=== PATIENT | male | born 1980 | race Caucasian/White ===

== ENCOUNTER 2019-09-23 13:08 | Emergency (ER) | payer SELFPAY ==
[2019-09-23 13:32] VITALS: BP 156/82; PULSE 91; RESP 20; TEMP 36.9; O2SAT 98; BMI 32.5
--- NOTE | 2019-09-23 13:43 | HMH.EDUTC ---
[facility] [place] Impression: Sciatic leg pain Low back pain Qualifiers: Chronicity: acute Back pain laterality: right Sciatica presence: with sciatica Sciatica laterality: sciatica of right side Qualified Code(s): M54.41 - Lumbago with sciatica, right side Disposition: Home, Self-Care Condition on Discharge: Good Instructions: Low Back Pain, DI for Low Back Pain Additional Instructions: Go home and rest. It would be best if you rested tomorrow too. No heavy lifting. No twisting. Take the oral medications as directed. The muscle relaxer (robaxin) will make you drowsy, so don't drive or operate heavy machinery after taking it. Don't start the oral steroids (medrol dose pack) until tomorrow, since you had the shots in here today. Follow up with your regular doctor. GO TO THE ER FOR ANY WORSENING SYMPTOMS OR CONCERN, ESPECIALLY BOWEL OR BLADDER ISSUES, SADDLE AREA NUMBNESS, FEVER, ETC Prescriptions: methylPREDNISolone [Medrol] 4 mg PO DIRECTED 6 Days #21 tab.ds.pk Transmission Status: Received by [facility] #[id number] methocarbamoL [Robaxin 750mg Tab] 750 mg PO TIDP PRN #30 tab PRN Reason: Muscle Spasm Transmission Status: Received by [facility] #[id number] Referrals: Provider,Referral, [Primary Care Provider] - Forms: Work/School Release Time of Disposition: 14:04 Medical Decision Making - Medical Records Medical records reviewed: No: I reviewed the patient's medical records. - Amadou Inquiry Pt receiving controlled substance: No Vital Signs: 09/23/19 13:32 09/23/19 14:06 Temperature 98.5 F 98.5 F Temperature Source Oral Pulse Rate 91 H Pulse Rate [Right Brachial] 91 H Respiratory Rate 20 20 Blood Pressure 156/82 H Blood Pressure [Right Arm] 156/82 H Blood Pressure Mean [Right Arm] 106 Blood Pressure Source [Right Arm] Automatic Cuff Blood Pressure Position [Right Arm] Sitting 02 Sat by Pulse Oximetry 98 Oxygen Delivery Method Room Air Orders (Tests/Meds): ED MEDICATIONS Discontinued Medications Generic Name Dose Route Start Last Admin Trade Name Freq PRN Reason Stop Dose Admin Ketorolac Tromethamine 60 mg 09/23/19 13:43 09/23/19 14:00 Toradol 60mg/2ml Vial IM 09/23/19 13:44 60 mg ONCE ONE Administration Methylprednisolone Sodium Succinate 125 mg 09/23/19 13:43 09/23/19 14:00 Solu-Medrol 125mg/2ml Vial IM 09/23/19 13:44 125 mg ONCE ONE Administration [facility] [place] - General Stated complaint: back pain Time Seen by Provider: 09/23/19 13:43 Mode of Arrival: Ambulatory Source of Information: Patient Limitations: No Limitations Description of Symptoms (Recalled from Triage Doc. by RN): PATIENT C/O LEFT LOWER BACK PAIN X 2 DAYS. STATES HE GOT UP FROM A LAWN CHAIR AND STRETCHED AND FELT A POP IN HIS RIGHT LOWER BACK THAT CAUSE PAIN TO SHOOT TO HIS LEFT LOWER BACK. C/O PAIN TO LEFT LOWER BACK AND TENDERNESS TO RIGHT LOWER BACK HEENT Symptoms (Recalled from RN notes): No Resp Symptoms (Recalled from RN notes): No Skin Symptoms (Recalled from RN notes): No MS Symptoms (Recalled from RN notes): Yes Functional Status (Recalled from RN notes): WNL - History of Present Illness Provider Complaint: He c/o 2 days of low back pain that began after he had worked hard all day putting up a fence, then went home and sit down. When he stood back up and stretched, he began having low back pain that is worse on the right and radiates down the right leg. He denies any urinary or bowel issues. He denies any saddle area numbness. - Related Data Previous Rx's Medication Instructions Recorded methocarbamoL [Robaxin 750mg Tab] 750 mg PO TIDP PRN #30 tab 09/23/19 methylPREDNISolone [Medrol] 4 mg PO DIRECTED 6 Days #21 09/23/19 tab.ds.pk Allergies Allergy/AdvReac Type Severity Reaction Status Date / Time No Known Allergies Allergy Verified 07/02/18 05:09 - Worker's Comp Is this a Worker's Comp case?: No
[2019-09-23 14:06] VITALS: BP 156/82; PULSE 91; RESP 20; TEMP 36.9; O2SAT 98
== END 2019-09-23 14:12 | disposition home or self-care (01) ==
PROVIDERS: Emergency Provider Nurse Practitioner Family
DX: M54.42 Lumbago with sciatica, left side (principal); F17.210 Nicotine dependence, cigarettes, uncomplicated; X50.3XXA Overexertion from repetitive movements, initial encounter
CPT/HCPCS: 96372; 99201

== ENCOUNTER 2020-07-26 18:03 | Emergency (ER) | payer OTHER, SELFPAY ==
--- NOTE | 2020-07-26 18:18 | XR_ITS ---
PROCEDURE: XR FOOT RT MIN 3V CLINICAL INDICATION: INJURY Pain swelling and bruising of the great toe following injury COMPARISON: No exams were available for comparison FINDINGS: No fracture or dislocation. No lytic or blastic change. There is normal mineralization. The joint spaces are well-preserved. No significant degenerative/arthritic changes. No erosive changes evident. Other findings:None. IMPRESSION: No acute findings. Dictated by: Saji Franco MD 07/27/2020 05:13 Saji Franco MD in [place] 07/27/2020 05:13
[2020-07-26 18:19] VITALS: BP 115/93; PULSE 105; RESP 19; TEMP 36.3; O2SAT 98; BMI 33.4
--- NOTE | 2020-07-26 18:24 | HMH.EDUTC ---
[facility] [place] Clinical Impression: Sprain of left foot Qualifiers: Encounter type: initial encounter Qualified Code(s): S93.602A - Unspecified sprain of left foot, initial encounter Disposition: Home, Self-Care Condition on Discharge: Good Instructions: DI for Foot Sprain Additional Instructions: Rest the extremity, apply ice for 15 minutes as tolerated three or four times per day, Elevate the extremity as tolerated while you are resting. Take ibuprofen for pain. I sent in a prescription to your pharmacy. Follow up with Dr. Camarena (podiatry). Sometimes there can be fractures that don't show up well on the first set of x-rays. So, you should follow up if you continue to have symptoms. I put in a referral but you need to call her office and schedule an appointment. Follow up with your regular doctor. GO TO THE ER FOR ANY WORSENING SYMPTOMS Prescriptions: Ibuprofen [Ibuprofen 600mg Tablet] 600 mg PO Q6HP PRN #30 tab PRN Reason: Mild Pain Transmission Status: Received by [facility] #[id number] Referrals: PCP,No [Primary Care Provider] - Mary Kate Camarena DPM [Staff Physician] - Time of Disposition: 19:11 Medical Decision Making - Medical Records Medical records reviewed: No: I reviewed the patient's medical records. - Amadou Inquiry Pt receiving controlled substance: No Vital Signs: 07/26/20 18:19 07/26/20 19:20 Temperature 97.4 F L 98 F Temperature Source Tympanic Pulse Rate 82 Pulse Rate [Right] 105 H Respiratory Rate 19 16 Blood Pressure 121/87 Blood Pressure [Right Arm] 115/93 H Blood Pressure Mean [Right Arm] 100 02 Sat by Pulse Oximetry 98 [facility] [place] - General Stated complaint: AO04/05@1700 R foot injury Time Seen by Provider: 07/26/20 18:24 Mode of Arrival: Ambulatory Source of Information: Patient Limitations: No Limitations Description of Symptoms (Recalled from Triage Doc. by RN): pt reports having pain in his R foot, specifically his toes. he tripped on stairs and thinks he may have broke his big toe. HEENT Symptoms (Recalled from RN notes): No Resp Symptoms (Recalled from RN notes): No Skin Symptoms (Recalled from RN notes): No MS Symptoms (Recalled from RN notes): Yes (R foot metatarsal pain) Functional Status (Recalled from RN notes): na - History of Present Illness Provider Complaint: He states that he was stepping down off the back of a moving truck when all his weight got put on his right great toe. He states that he heard a pop, then he began to have foot and big toe pain and swelling. - Related Data Previous Rx's Medication Instructions Recorded methocarbamoL [Robaxin 750mg Tab] 750 mg PO TIDP PRN #30 tab 09/23/19 methylPREDNISolone [Medrol] 4 mg PO DIRECTED 6 Days #21 09/23/19 tab.ds.pk Ibuprofen [Ibuprofen 600mg 600 mg PO Q6HP PRN #30 tab 07/26/20 Tablet] Allergies Allergy/AdvReac Type Severity Reaction Status Date / Time No Known Allergies Allergy Verified 07/26/20 18:22 - Worker's Comp Is this a Worker's Comp case?: No [facility] History - Hepatitis A Screen Drug use history?: No High risk sexual behaviors?: No History of sexually transmitted infection?: No Currently employed?: No Childcare worker?: No Do you have indoor plumbing?: Yes Do you have electricity?: Yes Attestation statement:: This patient has been screened for Hepatitis A risk factors. I have reviewed the patient's past medical history: Yes Medical History: Denies:: Cancer, Diabetes Mellitus Type 1, Diabetes Mellitus Type 2, MRSA Other Medical History: Reports: Other (Hep B, chronic intermittent pain) Other Surgeries: Yes: No Previous Surgery Amputation: No - Social History Smoking Status: Current every day smoker Tobacco Type: cigarettes # Packs/Day (cigarettes): 1 Alcohol Intake: never Occupational Status: other ROS Obtained: Yes All systems reviewed & no additional complaints - Constitutional Constitutional: Denies chills, Denies fev
[2020-07-26 19:20] VITALS: BP 121/87; PULSE 82; RESP 16; TEMP 36.6
== END 2020-07-26 19:20 | disposition home or self-care (01) ==
PROVIDERS: Emergency Provider Nurse Practitioner Family
DX: S93.602A Unspecified sprain of left foot, initial encounter (principal); W10.9XXA Fall (on) (from) unspecified stairs and steps, initial encounter; Y92.89 Other specified places as the place of occurrence of the external cause; F17.210 Nicotine dependence, cigarettes, uncomplicated
CPT/HCPCS: 29515; 73630; 99202; G0463

== ENCOUNTER 2020-09-19 08:44 | Emergency (ER) | payer OTHER, SELFPAY ==
--- NOTE | 2020-09-19 08:55 | XR_ITS ---
PROCEDURE INFORMATION: Exam: XR Lumbosacral Spine Exam date and time: 09/19/2020 8:55 AM Age: 39 years old Clinical indication: Low back pain TECHNIQUE: Imaging protocol: XR of the lumbosacral spine. Views: 2 or 3 views. COMPARISON: CR [id number] XR lumbar spine min 4V 11/01/2017 12:39 PM FINDINGS: Bones/joints: There is no evidence of acute fracture.There is no evidence of malalignment or dislocation. Intervertebral disc spaces are maintained. Schmorl's nodes noted at multiple levels L1 through L4 Soft tissues: Unremarkable. IMPRESSION: 1. There is no evidence of acute fracture.There is no evidence of malalignment or dislocation. 2. Intervertebral disc spaces are maintained.
[2020-09-19 08:56] VITALS: BP 171/96; PULSE 90; RESP 18; TEMP 36.7; O2SAT 100; BMI 32.5
--- NOTE | 2020-09-19 08:56 | HMH.EDGENADL ---
ED Disposition Clinical Impression: Back pain of lumbar region with sciatica Disposition: Home, Self-Care Condition on Discharge: Fair Instructions: DI for Sciatica, DI for Back Pain With Sciatica Additional Instructions: You have been evaluated for low back pain, sciatica. Please take anti-inflammatories and prednisone. Use stretching and strengthening exercises. Return to the emergency department for any new or worsening symptoms. Prescriptions: Ibuprofen [Ibuprofen 600mg Tablet] 600 mg PO Q8 #18 tab Transmission Status: Received by [facility] #[id number] predniSONE [Prednisone 20mg Tab] 20 mg PO BID #10 tab Transmission Status: Received by [facility] #[id number] Referrals: Provider,Referral, [Primary Care Provider] - Time of Disposition: 08:57 - Critical Care Critical Care Time: No Attestation: On 09/19/20, the high probability of a clinically significant, sudden or life threatening deterioration of the following system(s) required my full and direct attention, intervention and personal management. The time I documented below is in addition to time spent performing reported procedures but includes the following listed in this critical care notation. Medical Decision Making - Medical Records Medical records reviewed: Yes: I reviewed the patient's medical records. - Amadou Inquiry Pt receiving controlled substance: No Vital Signs: 09/19/20 08:56 Temperature 98.0 F Temperature Source Oral Pulse Rate [Left Radial] 90 Respiratory Rate 18 Blood Pressure [Right Arm] 171/96 H Blood Pressure Mean [Right Arm] 121 Blood Pressure Source [Right Arm] Automatic Cuff Blood Pressure Position [Right Arm] Sitting 02 Sat by Pulse Oximetry 100 Oxygen Delivery Method Room Air Orders (Tests/Meds): ED MEDICATIONS Discontinued Medications Generic Name Dose Route Start Last Admin Trade Name Freq PRN Reason Stop Dose Admin Ketorolac Tromethamine 15 mg 09/19/20 08:56 09/19/20 09:00 Ketorolac 30mg/Ml Vial IM 09/19/20 08:57 15 mg ONCE ONE Administration Lidocaine 1 each 09/19/20 08:56 09/19/20 09:01 Lidocaine 5% Transdermal Patch TP 09/19/20 08:57 1 each ONCE ONE Administration - Radiology Data #1 Image(s): L-Spine Image Reviewed: Yes I reviewed the patient's radiology results, Yes I have reviewed radiologist's interpretation Preliminary Findings: Normal/NAD XR L IMPRESSION: 1. There is no evidence of acute fracture.There is no evidence of malalignment or dislocation. 2. Intervertebral disc spaces are maintained. Medical Decision Narrative: In summary this is a 39-year-old male presenting to the emergency department with right-sided back pain, buttock pain, radiating into his thigh. Clinically stable on arrival. Vital signs within normal limits. Most likely diagnosis is sciatica. Patient has not had recent back imaging. Cannot exclude compression fracture or other structural abnormality. Will obtain lumbar x-rays. Patient given 15 mg IM Toradol. Prescriptions for anti-inflammatories, 600 mg ibuprofen, and prednisone 5-day pack. Recommended close follow-up with his PCP. Given instructions on back exercises. Avoid immobility. Stable for discharge. General Adult HPI - General Stated complaint: rt hip pain Time Seen by Provider: 09/19/20 08:58 Mode of Arrival: Ambulatory Source of Information: Patient Limitations: No Limitations - History of Present Illness HPI narrative: 39-year-old male presenting to the emergency department with right buttock and hip pain. Symptoms started 2 days ago. He woke up and when he started to walk had a pain in his right buttocks that was described as sharp, stabbing. Radiated into the back of his hip and lateral thigh. Pain is been constant for the last 2 days. Pain worse with walking. Improved by rest. Has a history of back issues. Has never seen a surgeon or orthopedist. Had sciatica on the left a
[2020-09-19 08:59] VITALS: BP 139/91; PULSE 78; RESP 16; O2SAT 98
--- NOTE | 2020-09-19 09:27 | PC.NURSE ---
pt going to rad.
[2020-09-19 10:30] VITALS: BP 139/61; PULSE 78; RESP 16; TEMP 36.7; O2SAT 98
== END 2020-09-19 10:32 | disposition home or self-care (01) ==
PROVIDERS: Emergency Provider Emergency Medicine
DX: M54.41 Lumbago with sciatica, right side (principal); F17.210 Nicotine dependence, cigarettes, uncomplicated
CPT/HCPCS: 72100; 96372; 99282

== ENCOUNTER 2022-04-21 08:16 | Emergency (ER) | payer BC, SELFPAY ==
[2022-04-21] VITALS (9 sets, daily range): BP systolic 95–123; BP diastolic 59–80; PULSE 71–111; RESP 17–20; TEMP 36.8–37.7; O2SAT 91–99; BMI 32.5; BMI 26.6
[2022-04-21 08:50] LABS: Apearance,Urine Turbid (Clear); Color,Urine Dark Yellow (Yellow)
[2022-04-21 08:51] LABS: UTC Influenza A Antigen Negative (Negative); UTC Influenza B Antigen Negative (Negative)
[2022-04-21 08:51] LABS: Glucose,Urine (UA) Negative (Negative); Protein,Urine 3+ (Negative); Specific Gravity, Urine >= 1.030 (1.005-1.030)
[2022-04-21 08:52] LABS: Bilirubin,Urine 1+ (Negative); Blood, Urine Trace (Negative); Ketones,Urine SMALL (Negative); UTC Leukocyte Esterase,Urine Negative (Negative); UTC Nitrate,Urine Negative (Negative); Urobilinogen,Urine 1 EU/dl (0.2)
--- NOTE | 2022-04-21 09:04 | EXP.UTC ---
Discharge Plan Disposition Patient Disposition: Home, Self-Care Condition: Fair Prescriptions Prescriptions: No Action omeprazole 40 mg capsule,delayed release(DR/EC) 40 mg PO QDAY Qty: 30 1RF Rx Instructions: swallow whole; do not crush, chew, dissolve, or cut/break Referrals Follow up/Referrals: Julien Ortega MD [Staff Physician] - See instructions (Needs elective cholecystectomy) Provider,Referral, [Primary Care Provider] - See instructions Activity Restrictions/Add. Instructions Additional Instructions/Restrictions: Follow-up with your primary care provider regarding this visit to the emergency department. If you have inability to tolerate food or drink by mouth, new or worsening symptoms, or any other concerning signs or symptoms, return to your primary care provider or the ED for further evaluation. Clinical Impressions Clinical Impression: Abdominal pain Discharge ED Provider: Castro Zapien [facility] [place] General Chief complaint: Upper Respiratory Infection Stated complaint: Stomach Pain Mode of Arrival: Ambulatory Source of Information: Patient Limitations: No Limitations Time Seen by Provider: 04/21/22 09:04 Description of Symptoms (Recalled from Triage Doc. by RN): pt comes in with c/o body aches, trouble peeing, back pain, headache. symptoms began lastnight. much worse this am. HEENT Symptoms (Recalled from RN notes): Yes Resp Symptoms (Recalled from RN notes): Yes Skin Symptoms (Recalled from RN notes): No MS Symptoms (Recalled from RN notes): Yes Functional Status (Recalled from RN notes): n/a History of Present Illness Provider Complaint: Patient states that yesterday he felt a little achy but he does that sometimes States that he woke up this morning feeling like the top of his head was blowing off having pain in his abdomen that is shooting into his back and feeling like his back was done States that when he pushes in on his stomach pain in back is worse. States that he also tried to urinate this morning and was unable to urinate States that he feels like his insides is infected States this is the worst headache he has ever had he just dont feel right States that has a little pain when he takes deep breath Related Data Previous Rx's Medication Instructions Recorded omeprazole 40 mg capsule,delayed 40 mg PO QDAY #30 caps 01/27/22 release Allergies Allergy/AdvReac Type Severity Reaction Status Date / Time No Known Allergies Allergy Verified 04/21/22 08:45 Worker's Comp Is this a Worker's Comp case?: No [facility] Disclaimer: The information contained in this section may have been updated after the patient was seen, as this information can be updated by other users. Medical History (Updated 04/21/22 @ 13:37 by Castro Zapien MD) Abnormal electrocardiogram [ECG] [EKG] Anxiety Degenerative disc disease Hepatitis B Family History Other Coronary artery disease Social History Smoking Status: Current every day smoker tobacco type: cigarettes packs per day: 1 alcohol intake: never current occupational status: other Travel in the last 8 weeks: None ROS Obtained: Yes All systems reviewed & no additional complaints except as documented and Yes Systems reviewed as appropriate & no additional complaints except as documented Constitutional Constitutional: Reports system reviewed and no additional complaints, except as documented, Reports as per HPI and Reports headache(s) Eyes Eyes: Reports system reviewed and no additional complaints, except as documented and Reports as per HPI ENT Ears, Nose, Mouth, and Throat: Reports system reviewed and no additional complaints, except as documented, Reports as per HPI and Reports headache(s) Cardiovascular Cardiovascular: Reports system reviewed and no additional complaints, except as documented and Reports as per HPI Respi
[2022-04-21 09:21] LABS: Coronavirus 19, PCR Not Detected (NotDetected); Influenza A, PCR Not Detected (NotDetected); Influenza B, PCR Not Detected (NotDetected)
--- NOTE | 2022-04-21 09:24 | XR_ITS ---
FINAL REPORT CLINICAL HISTORY: COUGH COMPARISON: 07/02/2018 FINDINGS: TWO-VIEW CHEST The heart size is normal. The mediastinum is normal. There are mild right base opacities, favor atelectasis over pneumonia. There is no pneumothorax. IMPRESSION: Right base atelectasis over pneumonia. Reviewed, Interpreted and Dictated by Julien Blanco III, MD Transcribed by Sloane Pineda Authenticated and . [facility]
[2022-04-21 09:30] LABS: Basophils # 0.2 K/mm3 (0-0.2); Basophils % 2.2 % (0.1-2.0); Eosinophils % 0.5 % (0.1-12.0); Hematocrit 50.6 % (42.0-52.0); Hemoglobin 16.5 g/dL (14.1-18.0); Lymphocytes # 1.1 K/mm3 (0.7-4.5); Lymphocytes % 11.5 % (10-50); Mean Corpuscular HGB Conc 32.6 g/dL (31.8-35.4); Mean Corpuscular Hemoglobin 30.6 pg (27.0-31.2); Mean Corpuscular Volume 93.7 fl (80-94); Mean Platelet Volume 7.2 fl (7.4-10.4); Monocytes # 1.2 K/mm3 (0.1-1.0); Monocytes % 12.2 % (1.7-9.3); Neutrophils # 6.9 K/mm3 (1.8-7.8); Neutrophils % 73.7 % (37.0-80.0); Platelet Count 355 K/mm3 (142-424); Red Cell Distribution Width 13.2 % (11.5-17.5); White Blood Count 9.4 K/mm3 (4.8-10.8)
--- NOTE | 2022-04-21 09:30 | PC.NURSE ---
DR. MILLAN AT BEDSIDE
[2022-04-21 09:31] LABS: Chloride 103 mmol/L (98-107)
[2022-04-21 09:32] LABS: Potassium 4.1 mmoL/L (3.5-5.1); Sodium 140 mmol/L (136-145)
[2022-04-21 09:34] LABS: Alanine Aminotransferase 41 U/L (12-78); Alkaline Phosphatase 71 U/L (38-126); Aspartate Amino Transferase 51 U/L (17-59); Bilirubin,Total 0.6 mg/dl (0.2-1.3); Blood Urea Nitrogen 9 mg/dl (9-20); Creatinine Clearance Estimated 104 mL/min (50-200); Estimated Glomerular Filt Rate 75 ml/min (>60); GFR (African American) 90 ML/MIN (>60)
[2022-04-21 09:35] LABS: Albumin Level 4.7 g/dl (3.5-5.0); Albumin/Globulin Ratio 1.7 (1.1-1.8); Anion Gap 14.1 mEq/L (5-15); Calcium 9.6 mg/dl (8.4-10.2); Carbon Dioxide 27 mmol/L (22.0-30.0); Globulin 2.7 g/dL (1.3-3.2); Glucose 104 mg/dl (74-100); Lactic Acid 0.6 mmol/L (0.7-2.1); Total Protein,Serum 7.4 g/dl (6.3-8.2)
--- NOTE | 2022-04-21 09:45 | HMH.EDGENADL ---
Discharge Plan Disposition Patient Disposition: Home, Self-Care Condition: Fair Prescriptions Prescriptions: No Action omeprazole 40 mg capsule,delayed release(DR/EC) 40 mg PO QDAY Qty: 30 1RF Rx Instructions: swallow whole; do not crush, chew, dissolve, or cut/break Referrals Follow up/Referrals: Provider,Referral, [Primary Care Provider] - See instructions Activity Restrictions/Add. Instructions Additional Instructions/Restrictions: Follow-up with your primary care provider regarding this visit to the emergency department. If you have inability to tolerate food or drink by mouth, new or worsening symptoms, or any other concerning signs or symptoms, return to your primary care provider or the ED for further evaluation. Clinical Impressions Clinical Impression: Abdominal pain Discharge ED Provider: Castro Zapien General Adult HPI General Chief complaint: Upper Respiratory Infection Stated complaint: Stomach Pain Time Seen by Provider: 04/21/22 09:04 Mode of Arrival: Ambulatory Source of Information: Patient Limitations: No Limitations Description of Symptoms (Recalled from ER Triage Doc. by RN): pt comes in with c/o body aches, trouble peeing, back pain, headache. symptoms began lastnight. much worse this am. History of Present Illness HPI narrative: This is a 41-year-old male with history of hep B presenting with abdominal pain and nausea. Patient states that 24 hours prior to arrival, he began having abdominal pain that has been crescendo in nature. Right upper quadrant/epigastric and radiates through to his back. 10 out of 10 at its worst, currently 2 out of 10. Denies chest pain, shortness of breath, diaphoresis, weakness, neurologic deficits, vomiting, fevers, chills, yellowing of the skin or eyes, diarrhea, constipation, trauma, or any other concerning history. Patient has not tried anything to alleviate the symptoms and not noticed anything that makes him worse in particular. Related Data Previous Rx's Medication Instructions Recorded omeprazole 40 mg capsule,delayed 40 mg PO QDAY #30 caps 01/27/22 release Allergies Allergy/AdvReac Type Severity Reaction Status Date / Time No Known Allergies Allergy Verified 04/21/22 08:45 [facility] Disclaimer: The information contained in this section may have been updated after the patient was seen, as this information can be updated by other users. Medical History (Updated 04/21/22 @ 13:37 by Castro Zapien MD) Abnormal electrocardiogram [ECG] [EKG] Anxiety Degenerative disc disease Hepatitis B Family History Other Coronary artery disease Social History Smoking Status: Current every day smoker tobacco type: cigarettes packs per day: 1 alcohol intake: never current occupational status: other Travel in the last 8 weeks: None ROS Obtained: Yes All systems reviewed & no additional complaints except as documented Physical Exam General General appearance: alert and in no apparent distress Head Head exam: atraumatic, normocephalic and normal inspection Eye Eye exam: Present normal appearance, PERRL and EOMI ENT ENT exam: Present normal exam, normal oropharynx, mucous membranes moist, TM's normal bilaterally and normal external ear exam Neck Neck exam: Present normal inspection, full ROM and trachea midline; Absent meningismus or lymphadenopathy Chest Chest inspection: Present normal inspection and symmetric chest wall rise; Absent tenderness Respiratory Respiratory exam: Present normal lung sounds bilaterally; Absent respiratory distress Cardiovascular Cardiovascular exam: Present regular rate and normal rhythm; Absent JVD Abdominal Exam Abdominal exam: Present soft, tenderness and normal bowel sounds; Absent distention, guarding, rebound, rigidity, diminished bowel sounds, Miller's sign, Rovsing's sign or tenderness a
[2022-04-21 09:46] LABS: Lipase 54 U/L (23-300)
--- NOTE | 2022-04-21 11:07 | CT_ITS ---
FINAL REPORT TECHNIQUE: Postcontrast axial images through the abdomen and pelvis were performed. This study was performed with techniques to keep radiation doses as low as reasonably achievable, (ALARA). Individualized dose reduction techniques using automated exposure control or adjustment of mA and/or kV according to the patient's size were employed. CLINICAL HISTORY: Epigastric pain radiating to back FINDINGS: Abdomen: There is mild bibasilar atelectasis. There is mild fatty infiltration of the liver. There is gallbladder wall thickening without CT evidence of gallstones or biliary ductal dilatation. There is a focus of enhancement in the anterior liver dome measuring 15 mm of uncertain significance, could represent Tian or hypervascular mass. The spleen is unremarkable. The adrenals are normal. The pancreas is unremarkable. There is a less than 1 cm cyst in the posterior left kidney. The aorta is normal in caliber. No free fluid or adenopathy is identified. No findings for mechanical bowel obstruction are identified. Pelvis: The appendix is normal. The urinary bladder is unremarkable. No free fluid, free air, abscess or adenopathy is identified. IMPRESSION: Gallbladder wall thickening without CT evidence of gallstones or biliary ductal dilatation. Focus in the anterior liver dome, could represent Tian or hypervascular mass. If indicated, liver MRI may be helpful. Reviewed, Interpreted and Dictated by Julien Blanco III, MD Transcribed by Sloane Pineda Authenticated and . [facility]
== END 2022-04-21 13:50 | disposition home or self-care (01) ==
LOC: ER 08:29 → UTC 08:30 → ER 09:05
PROVIDERS: Nurse Practitioner; Emergency Provider Emergency Medicine
DX: R10.9 Unspecified abdominal pain (principal); M54.9 Dorsalgia, unspecified
CPT/HCPCS: 71046; 74177; 80053; 81003; 83605; 83690; 85025; 87086; 87804; 96361; 96374; 96375; 99285; C9803; J2405; Q9967; U0003; U0005

== ENCOUNTER 2022-07-31 08:43 | Emergency (ER) | payer OTHER, SELFPAY ==
[2022-07-31 08:44] VITALS: BP 124/95; PULSE 82; RESP 20; TEMP 36.4; O2SAT 99; BMI 27.3
--- NOTE | 2022-07-31 08:51 | HMH.EDGENADL ---
Discharge Plan Disposition Patient Disposition: Home, Self-Care Prescriptions Prescriptions: New doxycycline hyclate 100 mg capsule 100 mg PO BID 10 Days Qty: 20 0RF ibuprofen 800 mg tablet 800 mg PO TID PRN (Reason: pain) 7 Days Qty: 20 0RF cyclobenzaprine 5 mg tablet 5 mg PO TID PRN (Reason: muscle spasm) 5 Days Qty: 15 0RF No Action omeprazole 40 mg capsule,delayed release(DR/EC) 40 mg PO QDAY Qty: 30 1RF Rx Instructions: swallow whole; do not crush, chew, dissolve, or cut/break Referrals Follow up/Referrals: Elisa Nguyễn APRN [Primary Care Provider] - See instructions Activity Restrictions/Add. Instructions Additional Instructions/Restrictions: Return to the emergency department with lower extremity paralysis numbness between your legs loss of urine or bowel incontinence or urinary retention or high fever. Otherwise follow-up in primary care doctor for chronic back pain management as well as your physical therapist. Clinical Impressions Clinical Impression: Back pain, lumbosacral, Tick bite of ankle Instructions Patient Instructions: DI for Low Back Pain Discharge ED Provider: Paola Powell General Adult HPI General Chief complaint: Back Pain/Injury Stated complaint: Back pain Time Seen by Provider: 07/31/22 08:51 History of Present Illness HPI narrative: Patient is a 41-year-old male with a history of chronic back pain who recently was seen at [facility] few weeks ago with an MRI showing L4-L5 and L5-S1 neural foraminal stenosis and was seen by neurosurgery who is chart stated that there is no significant compressive pathology observed on MRI only moderate asymptomatic neuroforaminal stenosis. He did have a fall which exacerbated his symptoms at that point and today presents with increased pain after he sneezed last night. He states he does have pain going from his neck all the way down to his foot . He is still able to move his leg but that is limited secondary to pain. Denies any saddle anesthesia denies any paralysis denies any midline pain fever injection drug use or diabetes. No urinary retention no urinary or bowel incontinence. He has not been taking any medicine recently and has been following up with physical therapy. Neurosurgery in their note also stated that his symptoms were not severe enough on physical exam or radiographic standpoint to require any follow-up. Related Data Previous Rx's Medication Instructions Recorded omeprazole 40 mg capsule,delayed 40 mg PO QDAY #30 caps 01/27/22 release cyclobenzaprine 5 mg tablet 5 mg PO TID PRN muscle spasm 5 07/31/22 days #15 tabs doxycycline hyclate 100 mg capsule 100 mg PO BID 10 days #20 caps 07/31/22 ibuprofen 800 mg tablet 800 mg PO TID PRN pain 7 days #20 07/31/22 tabs Allergies Allergy/AdvReac Type Severity Reaction Status Date / Time No Known Allergies Allergy Verified 04/21/22 08:45 [facility] Disclaimer: The information contained in this section may have been updated after the patient was seen, as this information can be updated by other users. Medical History (Updated 07/31/22 @ 09:50 by Paola Powell MD) Abnormal electrocardiogram [ECG] [EKG] Anxiety Degenerative disc disease Hepatitis B Family History Other Coronary artery disease Social History Smoking Status: Current every day smoker tobacco type: cigarettes packs per day: 1 alcohol intake: never current occupational status: other Travel in the last 8 weeks: None ROS Obtained: Yes All systems reviewed & no additional complaints except as documented Physical Exam General General appearance: alert and in no apparent distress Respiratory Respiratory exam: Present normal lung sounds bilaterally Cardiovascular Cardiovascular exam: Present regular rate; Absent tachycardia Back Exam Back exam: Pre
--- NOTE | 2022-07-31 08:52 | PC.NURSE ---
DR MORENO AT BEDSIDE
--- NOTE | 2022-07-31 09:43 | PC.NURSE ---
DR MORENO AT BEDSIDE TO REEVALUATE PT
[2022-07-31 09:54] VITALS: BP 118/77; PULSE 71; RESP 18; TEMP 36.5; O2SAT 99
== END 2022-07-31 09:55 | disposition home or self-care (01) ==
PROVIDERS: Emergency Provider Student in an Organized Health Care Education/Training Program; PCP Nurse Practitioner Family
DX: M54.50 Low back pain, unspecified (principal); S90.562A Insect bite (nonvenomous), left ankle, initial encounter; F17.210 Nicotine dependence, cigarettes, uncomplicated
CPT/HCPCS: 96372; 99283; 99284

== ENCOUNTER 2022-08-22 19:13 | Emergency (ER) | payer OTHER, SELFPAY ==
[2022-08-22 19:18] VITALS: BP 170/100; PULSE 96; RESP 16; TEMP 36.7; O2SAT 97; BMI 27.3
--- NOTE | 2022-08-22 19:41 | HMH.EDGENADL ---
Discharge Plan Disposition Patient Disposition: Home, Self-Care Prescriptions Prescriptions: New triamcinolone acetonide 0.5 % cream 1 applic topical BID 14 Days Qty: 15 0RF No Action omeprazole 40 mg capsule,delayed release(DR/EC) 40 mg PO QDAY Qty: 30 1RF Rx Instructions: swallow whole; do not crush, chew, dissolve, or cut/break doxycycline hyclate 100 mg capsule 100 mg PO BID 10 Days Qty: 20 0RF ibuprofen 800 mg tablet 800 mg PO TID PRN (Reason: pain) 7 Days Qty: 20 0RF cyclobenzaprine 5 mg tablet 5 mg PO TID PRN (Reason: muscle spasm) 5 Days Qty: 15 0RF Referrals Follow up/Referrals: Elisa Nguyễn APRN [Primary Care Provider] - See instructions Activity Restrictions/Add. Instructions Additional Instructions/Restrictions: Please follow-up with a freezer worker or primary care doctor in 1 to 2 weeks if your symptoms not improving. Clinical Impressions Clinical Impression: Contact dermatitis Instructions Patient Instructions: DI for Skin Abscess Discharge ED Provider: Paola Powell General Adult HPI General Chief complaint: Skin/Abscess/Foreign Body Stated complaint: Rash on both hands and left arm Time Seen by Provider: 08/22/22 19:42 Mode of Arrival: Family Vehicle Source of Information: Patient Limitations: No Limitations Description of Symptoms (Recalled from ER Triage Doc. by RN): 41 yo male present with cc of bilateral hand itching and scaling, as well as itching and scaling to left bicep. states has been ongoing x 1 week. vss. afebrile. has attempted aloe for easement of symptoms. History of Present Illness HPI narrative: Patient is a 41-year-old male presenting today with a rash to the bilateral extensor surfaces of his hands as well as bilateral elbows. States that he was out in the sun and he feels like he may have gotten a sunburn but subsequently has had some raised areas with some pruritus associated with this. He states that he began to look at this online and found out that he could have sun poisoning and was concerned that this could lead to skin cancer which prompted his emergency department visit. Related Data Previous Rx's Medication Instructions Recorded omeprazole 40 mg capsule,delayed 40 mg PO QDAY #30 caps 01/27/22 release cyclobenzaprine 5 mg tablet 5 mg PO TID PRN muscle spasm 5 07/31/22 days #15 tabs doxycycline hyclate 100 mg capsule 100 mg PO BID 10 days #20 caps 07/31/22 ibuprofen 800 mg tablet 800 mg PO TID PRN pain 7 days #20 07/31/22 tabs triamcinolone acetonide 0.5 % 1 applic topical BID 2 weeks #15 08/22/22 topical cream grams Allergies Allergy/AdvReac Type Severity Reaction Status Date / Time No Known Allergies Allergy Verified 04/21/22 08:45 [facility] Disclaimer: The information contained in this section may have been updated after the patient was seen, as this information can be updated by other users. Medical History (Updated 08/22/22 @ 19:47 by Paola Powell MD) Abnormal electrocardiogram [ECG] [EKG] Anxiety Degenerative disc disease Hepatitis B Family History Other Coronary artery disease Social History Smoking Status: Unknown if ever smoked alcohol intake: never current occupational status: other Travel in the last 8 weeks: None ROS Obtained: Yes All systems reviewed & no additional complaints except as documented Physical Exam General General appearance: alert Respiratory Respiratory exam: Present normal lung sounds bilaterally and wheezes Cardiovascular Cardiovascular exam: Present regular rate; Absent tachycardia Neurological Exam Neurological exam: Present alert and oriented X3 Skin Skin exam: Present other (Raised erythematous lesions on the dorsal aspect of bilateral hands and bilateral elbows) Medical Decision Making Amadou Inquiry Pt receiving controlled substance: No
[2022-08-22 19:56] VITALS: BP 168/80; PULSE 85; RESP 20; TEMP 36.6; O2SAT 98
== END 2022-08-22 20:03 | disposition home or self-care (01) ==
PROVIDERS: Emergency Provider Student in an Organized Health Care Education/Training Program; PCP Nurse Practitioner Family
DX: L23.9 Allergic contact dermatitis, unspecified cause (principal)
CPT/HCPCS: 99283; 99284

== ENCOUNTER 2022-08-31 16:00 | Outpatient (RCR) | payer OTHER, SELFPAY ==
--- NOTE | 2022-07-04 10:12 | HMH.PTOPEV ---
PT Outpatient Evaluation Rehab PT Outpatient Evaluation Start: 07/04/22 09:01 Freq: Status: Active Protocol: Document 07/04/22 09:01 TIMMY (Rec: 07/04/22 10:11 TIMMY [id number]) E-signed By Sherry De La Torre, PT Outpatient Therapy Subjective History Subjective History Pt is a 41 y/o male who reports onset of severe left leg pain 2 weeks ago when he slipped on grass and fell landing on the left side of his buttocks on concrete. Pt reports he was laying carpet and carrying it on his shoulder at the time. Pt reports his whole left leg was numb and felt like a block of wood. Pt reports he was unable to wiggle his toes until hours later. Pt reports he drove himself to the [facility] and when he arrived he fell getting out of his car and passed out. Pt reports he had imaging at the hospital showing spinal stenosis. Pt reports he was given morphine initially for pain which did help. Pt reports he was transported to to see a spinal surgeon. Pt reports more imaging was done at with results of a herniated disc at L4-5. Pt denies known fractures. Pt reports current intermittent numbness of the posterior leg mostly above the knee and occasionally to the ankle/foot when it is bad. Pt reports he is unable to get in a comfortable position to ease the pain. Pt reports he is still taking anti-inflmmatory medication currently. Pt reports pain is aggravated by bending, walking <5 minutes and standing <5 minutes. Pt reports he is unable to work currently due to pain. Pt reports he was jogging every
--- NOTE | 2022-08-03 09:14 | HMH.RHREAS ---
Rehab Reassessment Rehab OP Re-assessment Start: 08/01/22 07:55 Freq: Status: Active Protocol: Document 08/03/22 08:11 TIMMY (Rec: 08/03/22 09:13 TIMMY [id number]) E-signed By Sherry De La Torre PT Rehab Re-assessment Subjective Subjective Pt reports he was improving well overall with centralization of left radicular symptoms and ability to walk for longer peridos until 07/31/22 when he sneezed while bent over and re- exacerbated pain. Pt reports 10/10 pain that day so he went to the ER and was given a muscle relaxer. Pt reports after this episode he has regressed with left leg pain that radiates behind his knee with short distance walking and any prolonged sitting. Pt reports he is compliant with his HEP and continues to respond well to lumbar extension based exercises. Objective Objective Notes Lumbar AROM: flex 50, ext 20, LLF 20, RLF 20 LLE MMT: 4+/5 + slump test and straight leg raise Assessment Progress Assessment Progressing as Expected Assessment Notes Pt has attended 9 PT sessions consisting of aerobic exercise , lumbar extension based exercises, gentle stretching/ strengthening, neural glides, manual therapy and modalities with good tolerance. Pt demonstrated improved lumbar AROM and MMT this date compared to initial evaluation . Pt was improving well with subjective report of pain and functional activity toelrance until re-exacerbation of radicular symptoms following a sneeze while in lumbar flexion on 07/31/22. Pt would continue to benefit from skilled PT to further improve pain, radicular symptoms, LE
== END 2022-08-31 16:05 | disposition home or self-care (01) ==
LOC: PT 16:00
PROVIDERS: Visit Provider Nurse Practitioner Family
DX: M51.26 Other intervertebral disc displacement, lumbar region (principal)
CPT/HCPCS: 97010; 97014; 97016; 97110; 97140; 97163; 97164; 97530; G0283

== ENCOUNTER 2023-01-12 22:37 | Emergency (ER) | payer OTHER, SELFPAY ==
[2023-01-12 22:48] VITALS: BP 153/92; PULSE 61; RESP 18; TEMP 36.7; O2SAT 97; BMI 27.3
[2023-01-12 23:00] VITALS: BP 142/86; PULSE 75; RESP 18; O2SAT 99
[2023-01-12 23:13] LABS: Basophils # 0.1 K/mm3 (0-0.2); Basophils % 0.5 % (0.1-2.0); Eosinophils # 0.3 K/mm3 (0.0-0.4); Eosinophils % 1.8 % (0.1-12.0); Hemoglobin 15.8 g/dL (14.1-18.0); Lymphocytes # 2.8 K/mm3 (0.7-4.5); Lymphocytes % 14.9 % (10-50); Mean Corpuscular HGB Conc 32.3 g/dL (31.8-35.4); Mean Corpuscular Hemoglobin 29.9 pg (27.0-31.2); Mean Corpuscular Volume 92.4 fl (80-94); Mean Platelet Volume 7.4 fl (7.4-10.4); Monocytes # 1.2 K/mm3 (0.1-1.0); Monocytes % 6.4 % (1.7-9.3); Neutrophils # 14.2 K/mm3 (1.8-7.8); Neutrophils % 76.4 % (37.0-80.0); Platelet Count 374 K/mm3 (142-424); Red Cell Distribution Width 13.7 % (11.5-17.5); White Blood Count 18.5 K/mm3 (4.8-10.8)
[2023-01-12 23:14] LABS: Chloride 103 mmol/L (98-107); Sodium 140 mmol/L (136-145)
[2023-01-12 23:15] LABS: Potassium 3.7 mmoL/L (3.5-5.1)
[2023-01-12 23:17] LABS: Alanine Aminotransferase 37 U/L (12-78); Albumin Level 4.2 g/dl (3.5-5.0); Albumin/Globulin Ratio 1.7 (1.1-1.8); Alkaline Phosphatase 58 U/L (38-126); Aspartate Amino Transferase 38 U/L (17-59); Bilirubin,Total 0.4 mg/dl (0.2-1.3); Blood Urea Nitrogen 13 mg/dl (9-20); Calcium 9.3 mg/dl (8.4-10.2); Creatinine Clearance Estimated 117 mL/min (50-200); Estimated Glomerular Filt Rate 83 ml/min (>60); GFR (African American) 100 ML/MIN (>60); Globulin 2.5 g/dL (1.3-3.2); Glucose 127 mg/dl (74-100); Lipase 72 U/L (23-300); Total Protein,Serum 6.7 g/dl (6.3-8.2)
--- NOTE | 2023-01-12 23:20 | CT_ITS ---
PROCEDURE INFORMATION: Exam: CT Abdomen And Pelvis With Contrast Exam date and time: 01/13/2023 12:00 AM Age: 42 years old Clinical indication: Abdominal pain; Additional info: Epigastric pain rad to back TECHNIQUE: Imaging protocol: Computed tomography of the abdomen and pelvis with contrast. Radiation optimization: All CT scans at this facility use at least one of these dose optimization techniques: automated exposure control; mA and/or kV adjustment per patient size (includes targeted exams where dose is matched to clinical indication); or iterative reconstruction. Contrast material: ISOVUE; Contrast volume: 75 ml; Contrast route: IV; REPORTING DATA: Count of CT and Cardiac NM exams in prior 12 months: This patient has received [address] and 0 known cardiac nuclear medicine studies in the 12 months prior to the current study. COMPARISON: CT ABDOMEN PELVIS W CON 04/21/2022 11:28 AM FINDINGS: Liver: Stable geographic focus of hyperenhancement in the anterior liver dome. Visualized portions of the liver otherwise unremarkable. Hepatic dome not in the [id number]. Gallbladder and bile ducts: Mild gallbladder wall thickening up to 5 mm with wall edema. No pericholecystic fluid. No radiopaque gallstones visualized. No biliary ductal dilation. Pancreas: Unremarkable. Spleen: Calcified splenic granulomas. Adrenal glands: Unremarkable. Kidneys and ureters: Unremarkable. No hydronephrosis. Stomach and bowel: Unremarkable. No bowel obstruction. Appendix: No evidence of appendicitis. Intraperitoneal space: Unremarkable. Vasculature: Mild atherosclerotic disease in the abdomen and pelvis. Lymph nodes: Unremarkable. Urinary bladder: Unremarkable as visualized. Reproductive: Unremarkable as visualized. Bones/joints: No acute osseous abnormality. Soft tissues: Unremarkable. IMPRESSION: 1. Mild gallbladder wall thickening but without pericholecystic inflammatory change and no radiopaque gallstones visualized. Recommend right upper quadrant abdominal ultrasound to assess for possible acute cholecystitis. 2. Stable focus of hyperenhancement in the anterior liver dome which may represent transient hepatic attenuation difference or distal dilation of a portal vein branch. Consider multiphasic CT or MR imaging for confirmation. 3. Mild atherosclerotic disease in the abdomen and pelvis which is greater than expected for patient age.
[2023-01-12 23:23] LABS: MANUAL DIFFERENTIAL MANUAL DIFFERENTIAL (MANUAL DIFF)
--- NOTE | 2023-01-12 23:24 | HMH.EDGENADL ---
Discharge Plan Disposition Patient Disposition: Home, Self-Care Condition: Good Prescriptions Prescriptions: No Action duloxetine 20 mg capsule,delayed release(DR/EC) 20 mg PO BID Referrals Follow up/Referrals: Elisa Degroot APRN [Primary Care Provider] - See instructions Quoc Starkey MD [Staff Physician] - See instructions Activity Restrictions/Add. Instructions Additional Instructions/Restrictions: You were evaluated in the emergency department today. I recommend close follow-up with general surgery for further evaluation and management of your recurrent abdominal pain. Return to the emergency department for new or worsening symptoms. Clinical Impressions Clinical Impression: Abdominal pain, Thickening of wall of gallbladder, Lesion of liver Instructions Patient Instructions: DI for Acute Abdominal Pain Discharge ED Provider: Sherry Montalvo General Adult HPI General Chief complaint: Abdominal Pain Stated complaint: Abd Pain. dizzy Time Seen by Provider: 01/12/23 23:07 Mode of Arrival: Family Vehicle Source of Information: Patient Limitations: No Limitations Description of Symptoms (Recalled from ER Triage Doc. by RN): 42 yo male presents with chief complaint mid-epigastric pain, r/t gb (what he's been told in the past). Patient states the pain has been ongoing all day. Complains of nausea, denies vomiting. No angina, no dyspnea. History of Present Illness HPI narrative: This patient is a 42-year-old male who denies significant past medical history presenting to the emergency department for evaluation with concern for epigastric abdominal pain radiating to his back. He stated that it started suddenly several hours ago. He states that he also had nausea. No other symptoms associated and nothing seems to make it better or worse. He states that he thinks that it is a flare of gallbladder pain. On medical record review, he has a history of hepatitis B. He has been evaluated here before for similar symptoms in the past, as early as March, and he at that time was found to have gallbladder wall thickening. He was discharged to follow-up outpatient at that time. No fevers, chills, or other concerns. Related Data Home Medications Medication Instructions Recorded Confirmed duloxetine 20 mg capsule,delayed 20 mg PO BID 09/28/22 09/28/22 release Allergies Allergy/AdvReac Type Severity Reaction Status Date / Time No Known Allergies Allergy Verified 09/28/22 14:20 [facility] Disclaimer: The information contained in this section may have been updated after the patient was seen, as this information can be updated by other users. Medical History Abnormal electrocardiogram [ECG] [EKG] Anxiety Degenerative disc disease Hepatitis B Family History Other Coronary artery disease Social History Smoking Status: Unknown if ever smoked alcohol intake: never current occupational status: other Travel in the last 8 weeks: None ROS Obtained: Yes All systems reviewed & no additional complaints except as documented Physical Exam General General appearance: alert and in no apparent distress Head Head exam: atraumatic and normocephalic Eye Eye exam: Present normal appearance, PERRL and EOMI ENT ENT exam: Present normal exam, normal oropharynx, mucous membranes moist and normal external ear exam Neck Neck exam: Present normal inspection, full ROM and trachea midline; Absent tenderness Chest Chest inspection: Present normal inspection and symmetric chest wall rise; Absent tenderness Respiratory Respiratory exam: Present normal lung sounds bilaterally; Absent respiratory distress, wheezes, stridor or accessory muscle use Cardiovascular Cardiovascular exam: Present regular rate and normal rhythm Abdominal Exam Abdominal exam: Presen
[2023-01-12 23:26] LABS: Anion Gap 12.7 mEq/L (5-15); Carbon Dioxide 28 mmol/L (22.0-30.0)
[2023-01-12 23:30] VITALS: BP 132/88; PULSE 79; RESP 18; O2SAT 98
--- NOTE | 2023-01-12 23:39 | PC.NURSE ---
Rounded on patient; nothing needed at this time. Call light within reach of patient
[2023-01-12 23:48] LABS: Lymphocytes % 23 % (10-50); Monocytes % 1 % (2-9); Neutrophils % 76 % (42-76); Platelet Estimate Normal; RBC Morphology Normal; Total Cells Counted 100
[2023-01-13 00:30] VITALS: BP 121/77; PULSE 84; O2SAT 95
[2023-01-13 01:01] VITALS: BP 131/79; PULSE 70; O2SAT 95
[2023-01-13 01:30] VITALS: BP 116/74; PULSE 75; O2SAT 95
[2023-01-13 02:57] VITALS: BP 137/77; PULSE 71; RESP 19; TEMP 36.7; O2SAT 98
== END 2023-01-13 02:59 | disposition home or self-care (01) ==
PROVIDERS: Emergency Medicine; Emergency Provider Emergency Medicine; PCP Nurse Practitioner Family
DX: R10.13 Epigastric pain (principal); K82.8 Other specified diseases of gallbladder; K76.9 Liver disease, unspecified; F41.9 Anxiety disorder, unspecified; B19.10 Unspecified viral hepatitis B without hepatic coma
CPT/HCPCS: 74177; 80053; 83690; 85007; 85025; 96361; 96374; 96375; 99284; J0131; J2405; Q9967

== ENCOUNTER 2023-05-30 03:53 | Emergency (ER) | payer OTHER, SELFPAY ==
[2023-05-30 03:55] VITALS: BP 146/98; PULSE 86; RESP 22; TEMP 36.4; O2SAT 99; BMI 27.3
[2023-05-30 04:00] VITALS: BP 146/98; PULSE 86; O2SAT 100
--- NOTE | 2023-05-30 04:06 | CT_ITS ---
PROCEDURE INFORMATION: Exam: CT Abdomen And Pelvis With Contrast Exam date and time: 05/30/2023 4:34 AM Age: 42 years old Clinical indication: Abdominal pain; Additional info: Ruq pain TECHNIQUE: Imaging protocol: Computed tomography of the abdomen and pelvis with contrast. Radiation optimization: All CT scans at this facility use at least one of these dose optimization techniques: automated exposure control; mA and/or kV adjustment per patient size (includes targeted exams where dose is matched to clinical indication); or iterative reconstruction. Contrast material: ISOVUE; Contrast volume: 75 ml; Contrast route: IV; COMPARISON: CT ABDOMEN PELVIS W CON 01/13/2023, 04/21/2022 FINDINGS: Lungs: RLL calcified granuloma. Liver: Fatty infiltration. 1.5 cm enhancing lesion, stable. Gallbladder and bile ducts: Few tiny gallstones. No significant ductal dilation. Minimal asymmetric gallbladder wall thickening or fluid versus volume averaging. No significant ductal dilation. Pancreas: Unremarkable. No ductal dilation. Spleen: Few calcifications. Adrenal glands: No mass. Kidneys and ureters: Too small to characterize lesion within LEFT kidney (< 1 cm). No significant hydronephrosis. Stomach and bowel: No definite mural thickening. No obstruction. Appendix: Normal caliber. No inflammation. Intraperitoneal space: No significant fluid collection. No definite free air. Vasculature: Mild atherosclerotic disease. Circumaortic LEFT renal vein. No aneurysm. Lymph nodes: No pathologically enlarged lymph nodes. Urinary bladder: Unremarkable. Reproductive: Unremarkable as visualized. Bones/joints: Severe degenerative disc disease at L5-S1 level. No acute fracture. Soft tissues: Unremarkable. IMPRESSION: Cholelithiasis with possible minimal gallbladder wall thickening. Suggest ultrasound. COMMENTS: Consistent with the [employer]'s Incidental Findings Committee white paper (J Am Renny Radiol 2018): Any incidental renal lesion less than 1 cm or classified as too small to characterize, or any incidental cystic renal lesion characterized as simple-appearing, is likely benign. No follow-up imaging is recommended for these lesions per consensus recommendations based on imaging criteria.
[2023-05-30] MEDS: LACTATED RINGERS 1000ML 1,000 ML 999 ML IV (04:11)
[2023-05-30 04:12] LABS: Microscopic, Urine URINE MICROSCOPIC (MICROSCOPIC)
[2023-05-30] MEDS: KETOROLAC 30MG/ML VIAL 30 MG IV (04:12)
[2023-05-30] MEDS: ONDANSETRON 4MG/2ML VIAL 4 MG IV (04:12)
[2023-05-30] MEDS: MORPHINE 4MG/ML SYRINGE 4 MG IV (04:12)
[2023-05-30] MEDS: ACETAMINOPHEN 500MG TAB 1000 MG PO (04:12)
[2023-05-30 04:14] LABS: Basophils # 0.2 K/mm3 (0-0.2); Basophils % 1.5 % (0.1-2.0); Eosinophils # 0.4 K/mm3 (0.0-0.4); Eosinophils % 2.9 % (0.1-12.0); Hematocrit 50.8 % (42.0-52.0); Hemoglobin 17.4 g/dL (14.1-18.0); Lymphocytes # 4.1 K/mm3 (0.7-4.5); Lymphocytes % 29.3 % (10-50); Mean Corpuscular HGB Conc 34.2 g/dL (31.8-35.4); Mean Corpuscular Hemoglobin 31.4 pg (27.0-31.2); Mean Corpuscular Volume 91.9 fl (80-94); Mean Platelet Volume 7.2 fl (7.4-10.4); Monocytes % 7.2 % (1.7-9.3); Neutrophils # 8.2 K/mm3 (1.8-7.8); Neutrophils % 59.1 % (37.0-80.0); Platelet Count 359 K/mm3 (142-424); Red Blood Count 5.53 M/mm3 (4.60-6.20); Red Cell Distribution Width 13.5 % (11.5-17.5); White Blood Count 13.9 K/mm3 (4.8-10.8)
[2023-05-30 04:15] LABS: Appearance,Urine CLEAR (Clear); Bilirubin,Urine Negative (Negative); Blood, Urine Negative (Negative); Color,Urine YELLOW (Yellow); Glucose,Urine (UA) Negative (Negative); Ketones,Urine Negative (Negative); Leukocyte Esterase,Urine Negative (Negative); Nitrate,Urine Negative (Negative); Protein,Urine Negative (Negative); Urobilinogen,Urine 0.2 EU/dl (0.2)
[2023-05-30 04:16] LABS: Chloride 103 mmol/L (98-107); Potassium 3.9 mmoL/L (3.5-5.1); Sodium 140 mmol/L (136-145)
[2023-05-30 04:19] LABS: Alanine Aminotransferase 36 U/L (12-78); Albumin Level 4.5 g/dl (3.5-5.0); Albumin/Globulin Ratio 1.6 (1.1-1.8); Alkaline Phosphatase 66 U/L (38-126); Anion Gap 11.9 mEq/L (5-15); Aspartate Amino Transferase 39 U/L (17-59); Bilirubin,Total 0.7 mg/dl (0.2-1.3); Blood Urea Nitrogen 5 mg/dl (9-20); Carbon Dioxide 29 mmol/L (22.0-30.0); Creatinine Clearance Estimated 117 mL/min (50-200); Estimated Glomerular Filt Rate 83 ml/min (>60); GFR (African American) 100 ML/MIN (>60); Globulin 2.9 g/dL (1.3-3.2); Total Protein,Serum 7.4 g/dl (6.3-8.2)
[2023-05-30 04:20] LABS: Calcium 9.4 mg/dl (8.4-10.2); Glucose 125 mg/dl (74-100)
[2023-05-30 04:25] LABS: Bacteria,Urine Trace /lpf; Squamous Epithelial Cell,Urine Occasional #/hpf (0-5)
[2023-05-30] MEDS: IOPAMIDOL-370 (76%);100ML BOTTLE 75 ML IV (04:40)
[2023-05-30] MEDS: SODIUM CHLORIDE 0.9% 10ML SYR (RAD ONLY) 10 ML IV (04:40)
--- NOTE | 2023-05-30 04:52 | ED_ITS ---
Discharge Plan Disposition Patient Disposition: Home, Self-Care Prescriptions Prescriptions: No Action No Known Home Medications Referrals Follow up/Referrals: Elisa Degroot APRN [Primary Care Provider] - See instructions Quoc Starkey MD [Staff Physician] - See instructions Activity Restrictions/Add. Instructions Additional Instructions/Restrictions: Head up to Dr. Noonan's office at 9 AM today, 05/30. Call your family doctor to establish care for this visit to the emergency department and schedule follow-up within 48 hours to ensure improvement. If you have any worsening of your condition or any other concerning signs or symptoms, return to the emergency department or your primary care doctor for further evaluation. Take Tylenol 1000 mg every 6 hours (4 times daily) and ibuprofen 400 mg every 6 hours (4 times daily) as needed with food and water to prevent GI upset and kidney damage. Clinical Impressions Clinical Impression: Abdominal pain, acute, right upper quadrant Instructions Patient Instructions: DI for Acute Abdominal Pain Discharge ED Provider: Castro Zapien General Adult HPI <Cuong Brewer MD - Last Filed: 05/30/23 06:06> General Chief complaint: Abdominal Pain Stated complaint: Pain right side Time Seen by Provider: 05/30/23 03:59 Mode of Arrival: Ambulatory Source of Information: Patient Limitations: No Limitations Description of Symptoms (Recalled from ER Triage Doc. by RN): Patient states that he awoke to right side flank pain. History of Present Illness HPI narrative: 42-year-old male with no reported past medical history presents with sudden onset right upper quadrant pain. He reports that he has had some gallbladder pain in the past, but this is very severe and different. He reports it awoke him from sleep at approximately 3:30 AM. He reports no recent fever or illness. Reports no history of abdominal surgery. He denies any significant past medical history. Denies any nausea or vomiting. Related Data Home Medications Medication Instructions Recorded Confirmed No Known Home Medications 05/30/23 05/30/23 Allergies Allergy/AdvReac Type Severity Reaction Status Date / Time No Known Allergies Allergy Verified 09/28/22 14:20 PFSH <Cuong Brewer MD - Last Filed: 05/30/23 06:06> [facility] Disclaimer: The information contained in this section may have been updated after the patient was seen, as this information can be updated by other users. Medical History Abnormal electrocardiogram [ECG] [EKG] Anxiety Degenerative disc disease Hepatitis B Family History Other Coronary artery disease Social History Smoking Status: Current every day smoker tobacco type: cigarettes packs per day: 1 alcohol intake: never current occupational status: other Travel in the last 8 weeks: None <Cuong Brewer MD - Last Filed: 05/30/23 06:06> ROS Obtained: Yes All systems reviewed & no additional complaints except as documented Physical Exam <Cuong Brewer MD - Last Filed: 05/30/23 06:06> General General appearance: alert Comment: Uncomfortable appearing Head Head exam: atraumatic and normocephalic Eye Eye exam: Present normal appearance, PERRL and EOMI ENT ENT exam: Present normal oropharynx and normal external ear exam Neck Neck exam: Present normal inspection and full ROM Chest Chest inspection: Present normal inspection and symmetric chest wall rise; Absen t tenderness Respiratory Respiratory exam: Present normal lung sounds bilaterally; Absent respiratory distress Cardiovascular Cardiovascular exam: Present regular rate and normal rhythm Abdominal Exam Abdominal exam: Present soft and tenderness (Focal right upper quadrant); Absent distention or guarding Extremities Exam Extremities exam: Present normal inspection; Absent edema or joint swelling Back Exam Back exam: Present normal inspection; Absent tenderness Neurological Exam Neurological exam: Present alert and oriented X3; Absent motor sensory deficit Psychiatric Psychiatric exam: Present normal affect and normal mood Skin Skin exam: Present warm, dry and normal color Lymphatic Lymphatic Findings: no adenopathy Medical Decision Making <Cuong Brewer MD - Last Filed: 05/30/23 06:06> Medical Records Medical records reviewed: Yes I reviewed the patient's medical records. Amadou Inquiry Pt receiving controlled substance: No Amadou was queried for this patient: No Vital Signs: 05/30/23 03:55 05/30/23 04:00 05/30/23 05:00 Temperature 97.6 F Temperature Source Oral Pulse Rate 86 58 L Pulse Rate [Radial] 86 Respiratory Rate 22 Blood Pressure 146/98 H 128/87 Blood Pressure [Right Arm] 146/98 H Blood Pressure Mean Blood Pressure Mean [Right Arm] 114 Blood Pressure Source [Right Arm] Automatic Cuff Blood Pressure Position [Right Arm] Sitting 02 Sat by Pulse Oximetry 99 100 96 Oxygen Delivery Method Room Air 05/30/23 07:26 Temperature Temperature Source Pulse Rate 57 L Pulse Rate [Radial] Respiratory Rate Blood Pressure 110/77 Blood Pressure [Right Arm] Blood Pressure Mean 88 Blood Pressure Mean [Right Arm] Blood Pressure Source [Right Arm] Blood Pressure Position [Right Arm] 02 Sat by Pulse Oximetry 98 Oxygen Delivery Method Room Air Lab Data Lab results reviewed: Yes I reviewed the patient's lab results. Lab Results 05/30/23 03:55: Urine Color Yellow, Urine Appearance Clear, Urine pH 6.0, Ur Specific Edgard 1.010, Urine Protein Negative, Urine Glucose (UA) Negative, Urine Ketones Negative, Urine Blood Negative, Urine Nitrate Negative, Urine Bilirubin Negative, Urine Urobilinogen 0.2, Ur Leukocyte Esterase Negative, Urine RBC None, Urine WBC None, Ur Squamous Epith Cells Occasional, Urine Teresa teria Trace 05/30/23 04:03: WBC 13.9 H, RBC 5.53, Hgb 17.4, Hct 50.8, MCV 91.9, MCH 31.4 H, MCHC 34.2, RDW 13.5, Plt Count 359, MPV 7.2 L, Neut % (Auto) 59.1, Lymph % (Auto) 29.3, Citrus % (Auto) 7.2, Eos % (Auto) 2.9, Baso % (Auto) 1.5, Neut # (Auto) 8.2 H, Lymph # (Auto) 4.1, Citrus # (Auto) 1.0, Eos # (Auto) 0.4, Baso # (Auto) 0.2, Sodium 140, Potassium 3.9, Chloride 103, Carbon Dioxide 29, Anion Gap 11.9, BUN 5 L, Creatinine 1.00, Estimated Creat Clear 117, Estimated GFR 83, Est GFR ( Amer) 100, Glucose 125 H, Calcium 9.4, Total Bilirubin 0.7, AST 39, ALT 36, Alkaline Phosphatase 66, Total Protein 7.4, Albumin 4.5, Globulin 2.9, Albumin/Globulin Ratio 1.6, Lipase 100 05/30/23 04:03 05/30/23 04:03 Orders (Tests/Meds): ED MEDICATIONS Generic Name Dose Route Start Last Admin Trade Name Tara PRN Reason Stop Dose Admin Sodium Chloride 10 ml 05/30/23 04:39 05/30/23 04:40 Sodium Chloride 0.9% 10ml Syr (Rad Only) IV 06/29/23 04:38 10 ml NEEDED PRN Administration Maintain IV Site Discontinued Medications Generic Name Dose Route Start Last Admin Trade Name Tara PRN Reason Stop Dose Admin Acetaminophen 1,000 mg 05/30/23 04:06 05/30/23 04:12 Acetaminophen 500mg Tab PO 05/30/23 04:07 1,000 mg ONCE ONE Administration Lactated Ringer's 1,000 mls @ 999 mls/hr 05/30/23 04:15 05/30/23 04:11 Lactated Ringer's 1000 Ml Bag IV 05/30/23 05:15 999 mls/hr .Q1H1M MARGO Administration Iopamidol 75 ml 05/30/23 04:39 05/30/23 04:40 Iopamidol-370 (76%);100ml Bottle IV 05/30/23 04:40 75 ml ONCE ONE Administration Ketorolac Tromethamine 30 mg 05/30/23 04:06 05/30/23 04:12 Ketorolac 30mg/Ml Vial IV 05/30/23 04:07 30 mg ONCE ONE Administration Morphine Sulfate 4 mg 05/30/23 04:06 05/30/23 04:12 Morphine 4mg/Ml Syringe IV 05/30/23 04:07 4 mg ONCE ONE Administration Ondansetron HCl 4 mg 05/30/23 04:06 05/30/23 04:12 Ondansetron 4mg/2ml Vial IV 05/30/23 04:07 4 mg ONCE ONE Administration ORDERS Category Date Time Status CT abdomen pelvis w con Stat Cat Scan 05/30/23 04:06 Completed US RUQ [US abdomen limited] Stat Exams 05/30/23 05:57 Taken CBC w/Auto Diff [Complete Blood Count Auto Diff] Stat Lab 05/30/23 04:03 Completed CMP [Comprehensive Metabolic Panel] Stat Lab 05/30/23 04:03 Completed Lipase Stat Lab 05/30/23 04:03 Completed UA [Urinalysis and Microscopic] Stat Lab 05/30/23 03:55 Completed Medical Decision Narrative: 42-year-old male presents with right upper quadrant pain that awoke him from sleep.. History was obtained via conversation with patient. On arrival, patient is [afebrile, hemodynamically stable, satting appropriately, alert, oriented x4, GCS 15], moving all extremities spontaneously. Full physical exam performed and significant for focal right upper quadrant tenderness Differential includes but is not limited to cholecystitis, symptomatic cholelithiasis, choledocholithiasis, pancreatitis, gastritis, gastroenteritis, bowel obstruction, renal stone Patient was given Tylenol, Toradol, Zofran, morphine 1 L fluid bolus for symptomatic management and correction of underlying abnormalities. Workup initiated including CBC CMP lipase UA CT abdomen pelvis with IV contrast. On re-evaluation, patient [remains afebrile, HD stable.] Patient reports pain has gone from a 20 out of 10 to a 6 out of 10 Laboratory workup independently interpreted by me and significant for mild leukocytosis with white count of 13.9, no significant electrolyte derangement.. Imaging independently interpreted by me and significant for CT scan shows cholelithiasis and borderline wall thickening. Abdominal ultrasound was recommended by radiology, this was ordered.. See radiology read for full review of final results. Patient was handed off to oncoming physician pending right upper quadrant ultrasound to assess for signs of acute cholecystitis. <Castro Zapien MD - Last Filed: 05/30/23 08:14> Vital Signs: 05/30/23 03:55 05/30/23 04:00 05/30/23 05:00 Temperature 97.6 F Temperature Source Oral Pulse Rate 86 58 L Pulse Rate [Radial] 86 Respiratory Rate 22 Blood Pressure 146/98 H 128/87 Blood Pressure [Right Arm] 146/98 H Blood Pressure Mean Blood Pressure Mean [Right Arm] 114 Blood Pressure Source [Right Arm] Automatic Cuff Blood Pressure Position [Right Arm] Sitting 02 Sat by Pulse Oximetry 99 100 96 Oxygen Delivery Method Room Air 05/30/23 07:26 Temperature Temperature Source Pulse Rate 57 L Pulse Rate [Radial] Respiratory Rate Blood Pressure 110/77 Blood Pressure [Right Arm] Blood Pressure Mean 88 Blood Pressure Mean [Right Arm] Blood Pressure Source [Right Arm] Blood Pressure Position [Right Arm] 02 Sat by Pulse Oximetry 98 Oxygen Delivery Method Room Air Lab Data Lab Results 05/30/23 03:55: Urine Color Yellow, Urine Appearance Clear, Urine pH 6.0, Ur Specific Edgard 1.010, Urine Protein Negative, Urine Glucose (UA) Negative, Urine Ketones Negative, Urine Blood Negative, Urine Nitrate Negative, Urine Bilirubin Negative, Urine Urobilinogen 0.2, Ur Leukocyte Esterase Negative, Urine RBC None, Urine WBC None, Ur Squamous Epith Cells Occasional, Urine Bacteria Trace 05/30/23 04:03: WBC 13.9 H, RBC 5.53, Hgb 17.4, Hct 50.8, MCV 91.9, MCH 31.4 H, MCHC 34.2, RDW 13.5, Plt Count 359, MPV 7.2 L, Neut % (Auto) 59.1, Lymph % (Auto) 29.3, Citrus % (Auto) 7.2, Eos % (Auto) 2.9, Baso % (Auto) 1.5, Neut # (Auto) 8.2 H, Lymph # (Auto) 4.1, Citrus # (Auto) 1.0, Eos # (Auto) 0.4, Baso # (Auto) 0.2, Sodium 140, Potassium 3.9, Chloride 103, Carbon Dioxide 29, Anion Gap 11.9, BUN 5 L, Creatinine 1.00, Estimated Creat Clear 117, Estimated GFR 83, Est GFR ( Amer) 100, Glucose 125 H, Calcium 9.4, Total Bilirubin 0.7, AST 39, ALT 36, Alkaline Phosphatase 66, Total Protein 7.4, Albumin 4.5, Globulin 2.9, Albumin/Globulin Ratio 1.6, Lipase 100 Orders (Tests/Meds): ED MEDICATIONS Generic Name Dose Route Start Last Admin Trade Name Freq PRN Reason Stop Dose Admin Sodium Chloride 10 ml 05/30/23 04:39 05/30/23 04:40 Sodium Chloride 0.9% 10ml Syr (Rad Only) IV 06/29/23 04:38 10 ml NEEDED PRN Administration Maintain IV Site Discontinued Medications Generic Name Dose Route Start Last Admin Trade Name Freq PRN Reason Stop Dose Admin Acetaminophen 1,000 mg 05/30/23 04:06 05/30/23 04:12 Acetaminophen 500mg Tab PO 05/30/23 04:07 1,000 mg ONCE ONE Administration Lactated Ringer's 1,000 mls @ 999 mls/hr 05/30/23 04:15 05/30/23 04:11 Lactated Ringer's 1000 Ml Bag IV 05/30/23 05:15 999 mls/hr .Q1H1M MARGO Administration Iopamidol 75 ml 05/30/23 04:39 05/30/23 04:40 Iopamidol-370 (76%);100ml Bottle IV 05/30/23 04:40 75 ml ONCE ONE Administration Ketorolac Tromethamine 30 mg 05/30/23 04:06 05/30/23 04:12 Ketorolac 30mg/Ml Vial IV 05/30/23 04:07 30 mg ONCE ONE Administration Morphine Sulfate 4 mg 05/30/23 04:06 05/30/23 04:12 Morphine 4mg/Ml Syringe IV 05/30/23 04:07 4 mg ONCE ONE Administration Ondansetron HCl 4 mg 05/30/23 04:06 05/30/23 04:12 Ondansetron 4mg/2ml Vial IV 05/30/23 04:07 4 mg ONCE ONE Administration ORDERS Category Date Time Status CT abdomen pelvis w con Stat Cat Scan 05/30/23 04:06 Completed US RUQ [US abdomen limited] Stat Exams 05/30/23 05:57 Taken CBC w/Auto Diff [Complete Blood Count Auto Diff] Stat Lab 05/30/23 04:03 Completed CMP [Comprehensive Metabolic Panel] Stat Lab 05/30/23 04:03 Completed Lipase Stat Lab 05/30/23 04:03 Completed UA [Urinalysis and Microscopic] Stat Lab 05/30/23 03:55 Completed Medical Decision Narrative: 42-year-old male presents with right upper quadrant pain that awoke him from sleep.. History was obtained via conversation with patient. On arrival, patient is afebrile, hemodynamically stable, satting appropriately, alert, oriented x4, GCS 15, moving all extremities spontaneously. Full physical exam performed and significant for focal right upper quadrant tenderness Differential includes but is not limited to cholecystitis, symptomatic cholelithiasis, choledocholithiasis, pancreatitis, gastritis, gastroenteritis, bowel obstruction, renal stone Patient was given Tylenol, Toradol, Zofran, morphine 1 L fluid bolus for symptomatic management and correction of underlying abnormalities. Workup initiated including CBC CMP lipase UA CT abdomen pelvis with IV contrast. On re-evaluation, patient remains afebrile, HD stable. Patient reports pain has gone from a 20 out of 10 to a 6 out of 10 Laboratory workup independently interpreted by me and significant for mild leukocytosis with white count of 13.9, no significant electrolyte derangement.. Imaging independently interpreted by me and significant for CT scan shows cholelithiasis and borderline wall thickening. Abdominal ultrasound was recommended by radiology, this was ordered.. See radiology read for full review of final results. Patient was handed off to oncoming physician pending right upper quadrant ultrasound to assess for signs of acute cholecystitis. Curry: I assume primary responsibility for this patient after signout from previous physician. On my evaluation, patient feeling much better. Does not appear to be an extremis, pale, diaphoretic, or in any acute pain at all. I independently interpreted patient's workup. Leukocytosis of greater than 14, normal LFTs, normal bilirubin, normal alkaline phosphatase. Right upper quadrant ultrasound with thickened gallbladder wall, no pericholecystic fluid, stones, or other abnormal findings. Patient's CT scan with gallbladder wall thickening, no pericholecystic fluid or stones. On previous CT scans in 01/13, 04/13, patient does have chronic gallbladder wall thickening. Because of this, patient is likely experiencing acute on chronic cholecystitis. Because patient well-appearing and feeling much better, conversation was had with patient regarding admission for pain control and urgent cholecystectomy versus outpatient management with urgent cholecystectomy. Patient opting for outpatient management. Surgeon on-call, Dr. Starkey, was contacted. Recommended seeing patient today in clinic, 05/30, around 9 AM (about an hour from this dictation). Patient agreeable to this plan. Because patient at baseline without signs or symptoms of clinical decompensation, deemed appropriate for discharge. Results were relayed to patient who voiced understanding and were agreeable to outpatient management and follow up. At the time of discharge the patient was hemodynamically stable, tolerating PO, and mobilizing appropriately. Procedures <Cuong Brewer MD - Last Filed: 05/30/23 06:06> Risk/Benefits of Procedure(s) Were Explained: Yes Critical Care <Cuong Brewer MD - Last Filed: 05/30/23 06:06> Critical Care Time Critical Care Time: No
[2023-05-30 05:00] VITALS: BP 128/87; PULSE 58; O2SAT 96
[2023-05-30 05:01] LABS: Lipase 100 U/L (23-300)
--- NOTE | 2023-05-30 05:57 | US_ITS ---
FINAL REPORT CLINICAL HISTORY: RUQ pain, equivocal CT COMPARISON: CT performed earlier same day FINDINGS: Sonographic images of the right upper quadrant were obtained. The pancreas is partially obscured. There is mild fatty infiltration of the liver. Gallbladder wall is thickened measuring up to 8 mm. No gallstones are identified. There is no evidence of biliary ductal dilatation.The common duct measures 3 mm. Limited images of the right kidney are unremarkable. IMPRESSION: Nonspecific gallbladder wall thickening. If indicated, nuclear medicine hepatobiliary scan may be helpful. Reviewed, Interpreted and Dictated by Julien Blanco III, MD Transcribed by Joy Barnes Authenticated and [facility]
--- NOTE | 2023-05-30 07:17 | PC.NURSE ---
pt back from US via wheelchair.
[2023-05-30 07:26] VITALS: BP 110/77; PULSE 57; O2SAT 98
--- NOTE | 2023-05-30 07:26 | PC.NURSE ---
update pt on POC. pt hooked up to O2 monitor and BP cuff. no needs voiced. pt resting in bed, with TV on.
--- NOTE | 2023-05-30 07:50 | PC.NURSE ---
speaking with about further pt care.
[2023-05-30 08:05] VITALS: BP 113/85; PULSE 72; RESP 15; TEMP 36.7
== END 2023-05-30 08:06 | disposition home or self-care (01) ==
PROVIDERS: Emergency Medicine; Emergency Provider Emergency Medicine; PCP Nurse Practitioner Family
DX: R10.11 Right upper quadrant pain (principal); F17.210 Nicotine dependence, cigarettes, uncomplicated; K80.20 Calculus of gallbladder without cholecystitis without obstruction; D72.829 Elevated white blood cell count, unspecified
CPT/HCPCS: 74177; 76705; 80053; 81001; 83690; 85025; 96361; 96374; 96375; 99285; J2405; Q9967

== ENCOUNTER 2023-06-08 06:01 | Day surgery (SDC) | payer OTHER, SELFPAY ==
[2023-06-06 12:53] VITALS: BMI 27.3
[2023-06-08] VITALS (11 sets, daily range): BP systolic 104–175; BP diastolic 69–104; PULSE 78–100; RESP 15–26; TEMP 36.3–43; O2SAT 94–99
[2023-06-08] MEDS: LACTATED RINGERS 1000ML 1,000 ML 25 ML IV (06:12)
--- NOTE | 2023-06-08 07:05 | P.PNANES_ITS ---
[facility] Disclaimer: The information contained in this section may have been updated after the patient was seen, as this information can be updated by other users. Medical History Abnormal electrocardiogram [ECG] [EKG] Anxiety Degenerative disc disease Hepatitis B Surgical History No significant past surgical history Family History Other Coronary artery disease Social History Smoking Status: Current every day smoker tobacco type: cigarettes packs per day: 1 alcohol intake: never substance use type: marijuana current occupational status: employed Travel in the last 8 weeks: None [facility] Anesthesia Checklist Patient Identification Patient Identification: Arm Band and Family Structural Data Admitted From: Home Planned Operative Procedure/s: Lap Ml Consent for Planned Operative Procedure(s) Verified: Yes Verified Documents: Surgical Consent and History and Physical NPO Status Verified Time NPO: 00:00 Additional verifications Patient : No Anesthesia Reactions: No Hx Blood Transfusions: No Blood Transfusion Reaction: No Cephalosporin Allergy: No Previous Colonoscopy: No Airway Assessment Mallampati Score:: Class II C-Spine Mobility Assessed: Yes TMJ Mobility Assessed: Yes Dentition: Poor Dentition Neurological Assessment Level of Consciousness: Awake, Alert, Appropriate and Follows Commands Hx Seizures: No Numbness or tingling in extremities: No Anesthesia Plan Anesthesia Risk discussed: Yes ASA Class: II Anesthesia Type: General
[2023-06-08] MEDS: CEFAZOLIN SODIUM 1 GM in 0.9 % SODIUM CHLORIDE 50 ML IV (08:16)
[2023-06-08] MEDS: LIDOCAINE 1% 20ML MDV 20 ML (08:17)
--- NOTE | 2023-06-08 09:12 | EXP.OP.NOTE ---
Date of procedure: 06/08/23 Pre-op Diagnosis:: Chronic calculus cholecystitis Post-op Diagnosis:: Acute on chronic calculus cholecystitis Procedure performed:: Laparoscopic cholecystectomy Surgeon:: Quoc Starkey MD Anesthesia: JUAN Estimated blood loss (mL): 15 Operative findings:: Gallbladder wall thickening Severe infundibular thickening Dome down approach utilized secondary to above findings Operative note:: After informed consent was obtained, the patient was taken to the operating room and placed in the supine position. General anesthesia was induced and the abdomen was prepped and draped in a sterile fashion. After infiltration with local anesthetic an infraumbilical incision was made. A Veress needle was placed in position. The abdomen was insufflated. A 5 mm optical trocar was placed in position. Under direct visualization, a 12 mm trocar was placed in the subxiphoid position and 2 additional 5 mm trocars were placed in the right upper quadrant. The gallbladder was elevated up and over the liver margin. Gallbladder wall thickening and serosal weeping noted. Fairly severe infundibular thickening also noted. The decision was made to proceed with a dome down approach secondary to the above findings. The tissue around the cystic duct was carefully dissected. Continued dissection posterior to the gallbladder continued utilizing harmonic joseph. Dissection continued approaching the dome of the gallbladder allowing placement of Endoloops (x 2) at the infundibular margin. The gallbladder was transected distal to the Endoloops and placed in a retrieval bag. The gallbladder was removed through the subxiphoid trocar site (note: Trocar site extended laterally to allow for removal of the enlarged gallbladder with impacted stones). The right upper quadrant was thoroughly irrigated. No active bleeding or bile leak was noted. Fascia at the subxiphoid trocar site was reapproximated utilizing 0 Ethibond. The remaining trocars were removed. All wounds were irrigated and skin was closed with 4-0 Monocryl in a subcuticular fashion. Steri-Strips were applied. The patient's anesthetic agents were reversed and extubation was completed prior to transfer to recovery in stable condition. Condition: stable Disposition: PACU Specimens:: Gallbladder and contents Complications:: No immediate
--- NOTE | 2023-06-08 09:32 | P.PNANES_ITS ---
[facility] Anesthesia Record Part I Anesthesia Record I Intake, IV Amount: 700 Hydration: Adequate Estimated blood loss (mL): 15 Urine output (mL): 0 Blood Products used (#): none Blood Pressure: 156/93 SaO2: 94 Pulse Rate: 93 Airway Patency: Patent Respiratory Rate: 26 Temperature: 97.3 F Patient is:: Drowsy and Stable Stable to PACU at:: 09:20
--- NOTE | 2023-06-08 12:58 | P.PNANES_ITS ---
[facility] Anesthesia Record Part II Anesthesia Record Part II Discharge Time: 09:50 Destination: Surgical Day Care (OP Surgery) PACU nurse assessment reviewed?: Yes Patient Condition:: Good Anesthesia Complications:: None Swallowing reflex intact?: Yes Airway Patency: Patent Cyanosis?: No Blood Pressure: 175/92 SaO2: 98 Respiratory Rate: 18 Pulse Rate: 84 Temperature: 98.2 F Mental Status: Alert & Oriented Pain level:: 0 Nausea and/or vomitting:: None Intake, IV Amount: 0 Hydration: Adequate
== END 2023-06-08 10:27 | disposition home or self-care (01) ==
PROVIDERS: PCP Nurse Practitioner Family; Visit Provider Surgery
PROC: 0FT44ZZ Resection of Gallbladder, Percutaneous Endoscopic Approach (ICD-10-PCS; CPT 47562; principal; 2023-06-08 07:30)
DX: K80.10 Calculus of gallbladder with chronic cholecystitis without obstruction (principal)
CPT/HCPCS: 47562; 96374; J3490; J2405

== ENCOUNTER 2023-10-12 15:08 | Emergency (ER) | payer OTHER, SELFPAY ==
[2023-10-12 15:09] VITALS: BP 144/96; PULSE 87; RESP 18; TEMP 37.1; O2SAT 96; BMI 32.5
--- NOTE | 2023-10-12 15:18 | ECG_ITS ---
APPROVED REPORT Exam: Resting ECG HR:78 bpm ECG Measurements Heart Rate 78 AXES NE 119 P -1 QRSd 103 QRS 79 QT 348 T 43 QTc 381 Conclusion SINUS RHYTHM WITH SHORT NE INTERVAL BORDERLINE ECG UNCONFIRMED REPORT Electronically signed by : Gregorio Powell, 10/13/2023 00:21:11
[2023-10-12 15:30] VITALS: BP 125/104; PULSE 82; O2SAT 95
--- NOTE | 2023-10-12 15:36 | CT_ITS ---
FINAL REPORT TECHNIQUE: Axial images of the head was performed by computed tomography. Sagittal and coronal reformatted images were obtained and reviewed. This study was performed with techniques to keep radiation doses as low as reasonably achievable (ALARA). Individualized dose reduction techniques using automated exposure control or adjustment of mA and/or kV according to the patient's size were employed. CLINICAL HISTORY: syncope FINDINGS: No abnormal density is seen. Ventricles are normal. There is no hemorrhage. No mass effect is seen. Bone windows show no evidence of fracture. There is bilateral ethmoid and right sphenoid sinusitis. IMPRESSION: No acute findings. Reviewed, Interpreted and Dictated by Kevin Page MD Transcribed by Sloane Pineda Authenticated and [facility]
[2023-10-12] MEDS: LACTATED RINGERS 1000ML 1,000 ML 999 ML IV (15:38)
--- NOTE | 2023-10-12 15:39 | ED_ITS ---
Discharge Plan Disposition Patient Disposition: Home, Self-Care Prescriptions Prescriptions: No Action hydrocodone-acetaminophen 5-325 mg tablet 1 tab PO Q6H PRN (Reason: post-op pain) Qty: 17 0RF Referrals Follow up/Referrals: Elisa Degroot APRN [Primary Care Provider] - See instructions Sawyer Garcia MD [Staff Physician] - See instructions Activity Restrictions/Add. Instructions Additional Instructions/Restrictions: Your symptoms today most likely was secondary to dehydration in the setting of heat related illness. Please make sure you maintain adequate hydration with salt and sugar containing fluids like Gatorade or Powerade drink until your urine is clear. Take frequent rests when it is greater than 90 degrees outside. Return with any significant worsening of your symptoms you may also follow-up with cardiology if you continue to have these types of symptoms to have further evaluation for possible rhythm abnormalities or structural heart disease which are unlikely. Clinical Impressions Clinical Impression: Syncope, Dehydration, Muscle cramps Instructions Patient Instructions: DI for Skin Abscess Discharge ED Provider: Paola Powell General Adult HPI General Chief complaint: Skin/Abscess/Foreign Body Stated complaint: PEÑA,fingers tingling,Shaky Time Seen by Provider: 10/12/23 15:31 Mode of Arrival: Ambulatory Source of Information: Patient Limitations: No Limitations Description of Symptoms (Recalled from ER Triage Doc. by RN): passed out painting a house. History of Present Illness HPI narrative: Is a previously healthy 42-year-old male presents today with syncopal episode. 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 However he states he has been very hot over the last week has been outside has had muscle cramps and started to get lightheaded due to the heat. He knew that he was going to pass out and did lose consciousness. He was not on any type of ladder had no significant fall. He did wake up with a significant headache that has since resolved. No neurologic symptoms or complaints at the moment. States the headache is mild at the moment. No nausea or vomiting. He has not been lightheaded upon standing. No history of cardiovascular or pulmonary disease. He has no chest pain shortness of breath abdominal pain or other complaints. Related Data Previous Rx's Medication Instructions Recorded hydrocodone 5 mg-acetaminophen 325 1 tab PO Q6H PRN post-op pain #17 06/08/23 mg tablet tabs Allergies Allergy/AdvReac Type Severity Reaction Status Date / Time mushroom Allergy Verified 06/20/23 10:03 [facility] Disclaimer: The information contained in this section may have been updated after the patient was seen, as this information can be updated by other users. Medical History Abnormal electrocardiogram [ECG] [EKG] Anxiety Degenerative disc disease Hepatitis B Surgical History No significant past surgical history Family History Other Coronary artery disease Social History Smoking Status: Current every day smoker tobacco type: cigarettes packs per day: 1 alcohol intake: never substance use type: marijuana current occupational status: employed Travel in the last 8 weeks: None ROS Obtained: Yes All systems reviewed & no additional complaints except as documented Physical Exam General General appearance: alert and in no apparent distress Respiratory Respiratory exam: Present normal lung sounds bilaterally and respiratory distress Cardiovascular Cardiovascular exam: Present regular rate and normal rhythm Abdominal Exam Abdominal exam: Present soft; Absent distention or tenderness Neurological Exam Neurological exam: Present alert, oriented X3 and CN II-XII intact; Absent motor sensory deficit Medical Decision Making Amadou Inquiry Pt receiving controlled substance: No Vital Signs: 10/12/23 15:09 10/12/23 15:30 10/12/23 16:09 Temperature 98.7 F Temperature Source Oral Pulse Rate 82 71 Pulse Rate [Right] 87 Respiratory Rate 18 Blood Pressure 125/104 H 106/85 L Blood Pressure [Right Arm] 144/96 H Blood Pressure Mean Blood Pressure Mean [Right Arm] 112 02 Sat by Pulse Oximetry 96 95 98 Oxygen Delivery Method Room Air Room Air Room Air 10/12/23 16:31 10/12/23 17:00 Temperature Temperature Source Pulse Rate 68 64 Pulse Rate [Right] Respiratory Rate Blood Pressure 122/87 124/91 H Blood Pressure [Right Arm] Blood Pressure Mean 99 Blood Pressure Mean [Right Arm] 02 Sat by Pulse Oximetry 99 99 Oxygen Delivery Method Lab Data Lab results reviewed: Yes I reviewed the patient's lab results. Lab Results 10/12/23 15:20: WBC 14.0 H, RBC 5.24, Hgb 16.1, Hct 49.0, MCV 93.5, MCH 30.8, MCHC 33.0, RDW 13.7, Plt Count 350, MPV 7.4, Neut % (Auto) 64.6, Lymph % (Auto) 25.3, Mckinley % (Auto) 7.4, Eos % (Auto) 1.6, Baso % (Auto) 1.1, Neut # (Auto) 9.0 H, Lymph # (Auto) 3.5, Mckinley # (Auto) 1.0, Eos # (Auto) 0.2, Baso # (Auto) 0.2, Sodium 140, Potassium 3.5, Chloride 106, Carbon Dioxide 27, Anion Gap 10.5, BUN 9, Creatinine 1.10, Estimated Creat Clear 126, Estimated GFR 74, Est GFR ( Amer) 90, Glucose 105 H, Calcium 9.8, Phosphorus 3.4, Magnesium 1.9, Total Bilirubin 0.9, AST 55, ALT 52, Alkaline Phosphatase 74, Total Creatine Kinase 265 H, Total Protein 7.1, Albumin 4.4, Globulin 2.7, Albumin/Globulin Ratio 1.6 10/12/23 15:20 10/12/23 15:20 Orders (Tests/Meds): ED MEDICATIONS Discontinued Medications Generic Name Dose Route Start Last Admin Trade Name Freq PRN Reason Stop Dose Admin Lactated Ringer's 1,000 mls @ 999 mls/hr 10/12/23 15:45 10/12/23 15:38 Lactated Ringer's 1000 Ml Bag IV 10/12/23 16:45 999 mls/hr .Q1H1M MARGO Administration ORDERS Category Date Time Status CT head/brain wo con Stat Cat Scan 10/12/23 15:36 Completed CBC w/Auto Diff [Complete Blood Count Auto Diff] Stat Lab 10/12/23 15:20 Completed CK [Creatine Kinase] Stat Lab 10/12/23 15:20 Completed CMP [Comprehensive Metabolic Panel] Stat Lab 10/12/23 15:20 Completed Magnesium Stat Lab 10/12/23 15:20 Completed Phosphorous Stat Lab 10/12/23 15:20 Completed ECG Data Tracing #1: I reviewed this ECG and interpreted as documented below: Ventricular rate of 78 normal sinus rhythm no acute ischemic changes noted normal axis no conduction abnormality Medical Decision Narrative: Well-appearing 42-year-old male presents today with syncopal episode. From historical standpoint he has been outside having muscle cramps to been very hot in the 90s to 100 in the last week he likely is dehydrated. IV fluids are being administered he is also being given Tylenol for his headache. It is possible he had a subarachnoid hemorrhage that preceded this but very unlikely. He woke up with a headache most likely secondary to some minor head injury from the syncopal episode he has a normal neurologic exam GCS of 15 we will get a noncontrasted CT scan to rule out subarachnoid hemorrhage which is low likelihood at the moment. I do not suspect vascular dissection. I also do not suspect any type of meningitis etc. He was in a normal ventilated state regarding his painting and was not doing anything out of the ordinary with that he states it is unlikely this is some type of toxic ingestion of fumes etc. That may have been contributory but likely not the primary cause. He is largely asymptomatic at this point other than muscle cramps and feeling little bit dizzy. I will reassess after his workup is complete. EKG was performed and is unremarkable. CT scan performed to person interpreted shows no acute intracranial abnormality. Reassessment 5:36 PM patient feeling much better labs unremarkable EKG was unremarkable. Working diagnosis is heat related illness and dehydration likely causing loss of consciousness. Cannot rule out arrhythmia or structural heart disease which are unlikely he has been given a referral to cardiology if he remains symptomatic. He has been discharged in stable and improved condition. Critical Care Critical Care Time Critical Care Time: No
[2023-10-12 15:54] LABS: Basophils # 0.2 K/mm3 (0-0.2); Basophils % 1.1 % (0.1-2.0); Chloride 106 mmol/L (98-107); Eosinophils # 0.2 K/mm3 (0.0-0.4); Eosinophils % 1.6 % (0.1-12.0); Hemoglobin 16.1 g/dL (14.1-18.0); Lymphocytes # 3.5 K/mm3 (0.7-4.5); Lymphocytes % 25.3 % (10-50); Mean Corpuscular Hemoglobin 30.8 pg (27.0-31.2); Mean Corpuscular Volume 93.5 fl (80-94); Mean Platelet Volume 7.4 fl (7.4-10.4); Monocytes % 7.4 % (1.7-9.3); Neutrophils % 64.6 % (37.0-80.0); Platelet Count 350 K/mm3 (142-424); Red Blood Count 5.24 M/mm3 (4.60-6.20); Red Cell Distribution Width 13.7 % (11.5-17.5); Sodium 140 mmol/L (136-145)
[2023-10-12 15:55] LABS: Potassium 3.5 mmoL/L (3.5-5.1)
[2023-10-12 15:57] LABS: Alanine Aminotransferase 52 U/L (12-78); Albumin Level 4.4 g/dl (3.5-5.0); Albumin/Globulin Ratio 1.6 (1.1-1.8); Alkaline Phosphatase 74 U/L (38-126); Anion Gap 10.5 mEq/L (5-15); Aspartate Amino Transferase 55 U/L (17-59); Bilirubin,Total 0.9 mg/dl (0.2-1.3); Blood Urea Nitrogen 9 mg/dl (9-20); Calcium 9.8 mg/dl (8.4-10.2); Carbon Dioxide 27 mmol/L (22.0-30.0); Creatine Kinase 265 U/L (55-170); Creatinine Clearance Estimated 126 mL/min (50-200); Estimated Glomerular Filt Rate 74 ml/min (>60); GFR (African American) 90 ML/MIN (>60); Globulin 2.7 g/dL (1.3-3.2); Glucose 105 mg/dl (74-100); Phosphorous 3.4 mg/dl (2.5-4.5); Total Protein,Serum 7.1 g/dl (6.3-8.2)
[2023-10-12 15:58] LABS: Magnesium 1.9 mg/dl (1.6-2.3)
[2023-10-12 16:09] VITALS: BP 106/85; PULSE 71; O2SAT 98
[2023-10-12 16:31] VITALS: BP 122/87; PULSE 68; O2SAT 99
[2023-10-12 17:00] VITALS: BP 124/91; PULSE 64; O2SAT 99
--- NOTE | 2023-10-12 17:35 | PC.NURSE ---
DR MORENO AT BEDSIDE
[2023-10-12 17:40] VITALS: BP 121/88; PULSE 68; RESP 18; TEMP 36.8; O2SAT 98
== END 2023-10-12 17:40 | disposition home or self-care (01) ==
PROVIDERS: Emergency Provider Student in an Organized Health Care Education/Training Program; PCP Nurse Practitioner Family
DX: R55 Syncope and collapse (principal); E86.0 Dehydration; M62.838 Other muscle spasm; R51.9 Headache, unspecified; F17.210 Nicotine dependence, cigarettes, uncomplicated
CPT/HCPCS: 70450; 80053; 82550; 83735; 84100; 85025; 93005; 96360; 99284; J7120

== ENCOUNTER 2024-09-30 09:37 | Emergency (ER) | payer OTHER, SELFPAY ==
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
[2024-09-30 09:44] VITALS: BP 156/96; PULSE 79; RESP 20; TEMP 37.1; O2SAT 98; BMI 32.5
--- OUTSIDE RECORDS SUMMARY | 2024-09-30 09:45 | XMS_ITS | Clinical Summary ---
Author Organization [facility] Address [address] [place] [address] Care Team Providers Care Head Miller Name Role Phone Pcp, No Primary Care Provider Unavailabl e Allergies No known active allergies Social History Tobacco Use Types Packs/Day Years Used Date Smoking Tobacco: Never Assessed Sex and Gender Information Value Date Recorded Sex Assigned at Not on file Legal Sex Male 6:55 PM EDT Gender Identity Not on file Sexual Orientation Not on file Last Filed Vital Signs Vital Sign Reading Time Taken Comments Blood Pressure 96/57 06/14/2022 8:47 PM EST Pulse 53 06/14/2022 8:47 PM EST Temperature 36.9 C (98.4 F) 06/14/2022 8:47 PM EST Respiratory Rate 18 06/14/2022 8:47 PM EST Oxygen Saturation 95% 06/14/2022 8:47 PM EST Inhaled Oxygen Concentration - - Weight - - Height - - Body Mass Index - - Plan of Treatment Health Maintenance Due Date Last Done Comments [facility]-Depression Screening 1982 [facility]-Infant/Child/Adol SDOH Screenings 1982 [facility]-Varicella Vaccines (1 of 2 - 13+ 2-dose series) 11/04/1995 HPV Vaccines (1 - Male 3-dos e series) 1997 [facility]-DTaP,Tdap,and Td Vaccine s (2 - Tdap) 08/26/1998 08/25/1998 [facility]- SDOH Screenings 2000 [facility]-Adult SDOH Screenings 2000 [facility]-Hepatitis B Vaccines (1 of 3 - 19+ 3-dose series) 2001 [id number] Vaccine (1 - 20 24-25 season) 2023 [facility]-Influenza Vaccine (Seas[place] n Ended) 2024 [facility]-Zoster Vaccines (1 of 2) 2032 [facility]-HIV Screening Completed 04/24/2022 [facility]-Hepatitis C Screening Completed 04/24/2022 [facility]-HIB Vaccines Aged Out No longer e ligible based on patient's age to complete this topic [facility]-Hepatitis A Vaccines Aged Out No longer eligible based on patient's age to complete this topic [facility]-IPV Vaccines Aged Out No longer e ligible based on patient's age to complete this topic [facility]-Pneumococcal Vaccine: Pediatrics (0 to 5 Years) and At-Risk Patients (6 to 49 Years) Aged Out No long er eligible based on patient's age to complete this topic [facility]-Rotavirus Vaccines Aged Out No lo nger eligible based on patient's age to complete this topic Procedures Procedure Name Priority Date/Time Associated Diagnosis Comments HEPATITIS C ANTIBODY - ED W/REFLEX TO HCV QUANT PCR STAT 04/24/2022 11:41 AM EST HIV 1/2 ANTIBODY/ANTIGEN SCREEN WITH REFLEX TO HIV I/II DIFFERENTIATION STAT 04/24/2022 11:41 AM EST from Last 3 Months or Most Recently Relevant to Health Maintenance Results * HIV 1 & 2 Antibody/Antigen Screen (04/24/2022 11:41 AM EST) HIV 1 & 2 Antibody/Anti gen Screen Nonreactive Nonreactive 04/24/2022 1:42 PM EST [facility] Blood Venous blood specimen / Unknown Venipuncture / Unknown 04/24/2022 11:41 AM EST 04/24/2022 11:52 AM EST José Patel MD LAB BLOOD ORDERABLES Final Res ult [facility] [address] [place] [address] * Hepatitis C Antibody - ED (04/24/2022 11:41 AM EST) Hepatitis C Antibody Negative Negative 04/24/2022 1:41 PM EST [facility] Blood Venous blood specimen / Unknown Venipuncture / Unknown 04/24/2022 11:41 AM EST 04/24/2022 11:52 AM EST us José Patel MD LAB BLOOD ORDERABLES Final Res [facility] [address] [place] [address] from Last 3 Months or Most Recently Relevant to Health Maintenance Insurance [facility] [employer]ICA[employer] Care Teams Head Miller Relationship Specialty Start Date End Date Pcp, Jeanine [address] [place] [address] PCP - General Family Medicine 04/24/22
--- NOTE | 2024-09-30 09:52 | PC.NURSE ---
DR CORDERO AT BEDSIDE
[2024-09-30 10:00] VITALS: BP 135/94; PULSE 73; RESP 18; O2SAT 97
[2024-09-30] MEDS: ACETAMINOPHEN 500MG TAB 1000 MG PO (10:06)
[2024-09-30] MEDS: IBUPROFEN 600 MG TABLET PO (10:06)
[2024-09-30 10:30] VITALS: BP 135/82; PULSE 70; RESP 18; O2SAT 95
[2024-09-30] MEDS: TETRACAINE 0.5% OPTH SOL 15ML OP (10:32)
[2024-09-30] MEDS: ERYTHROMYCIN BASE 1 GM OINT...G. OP (10:32)
[2024-09-30] MEDS: FLUORESCEIN SODIUM 1MG STRIP 2 MG OP (10:32)
[2024-09-30 10:33] VITALS: BP 135/82; PULSE 68; RESP 18; TEMP 36.8; O2SAT 97
== END 2024-09-30 10:36 | disposition home or self-care (01) ==
PROVIDERS: Emergency Provider Emergency Medicine; PCP Nurse Practitioner Family
DX: T20.10XA Burn of first degree of head, face, and neck, unspecified site, initial encounter (principal); X12.XXXA Contact with other hot fluids, initial encounter
CPT/HCPCS: 99283